=== PATIENT | male | born 1970 | race Caucasian/White ===

== ENCOUNTER 2018-04-06 14:48 | Inpatient (IN) ==
[2018-04-06 16:01] LABS: Basophils % 0.1 %; Eosinophils # 0.2 K/mcL (0.0-0.6); Eosinophils % 1.8 %; Hematocrit 21.9 % (37.5-50.1); Hemoglobin 6.9 g/dL (12.9-16.9); Immature Granulocytes % 0.6 % (0-4); Lymphocytes # 0.5 K/mcL (0.6-4.6); Lymphocytes % 3.8 %; Mean Corpuscular HGB Conc 31.5 g/dL (31.6-35.5); Mean Corpuscular Hemoglobin 29.4 pg (28.0-33.3); Mean Corpuscular Volume 93.2 fL (83.0-100.0); Mean Platelet Volume 10.1 fL (9.4-12.4); Monocytes # 0.7 K/mcL (0.0-1.3); Monocytes % 5.3 %; Neutrophils # 11.6 K/mcL (1.6-8.9); Platelet Count 354 K/mcL (140-400); Red Blood Count 2.35 M/mcL (4.19-5.50); Red Cell Distribution Width 14.6 % (11.5-14.5); Segmented Neutrophils % 88.4 %
[2018-04-06] MEDS ORDERED: Levofloxacin 750 MG/150 ML 750 MG/150 ML BAG IVPB ONE (16:18)
[2018-04-06] MEDS ORDERED: Piperacillin/Tazobactam 3.375 GM in Water for inj. (sterile) 20 ML 20 ML IVP ONE (16:19)
[2018-04-06 16:21] LABS: Calcium 8.9 mg/dL (8.6-10.3)
--- NOTE | 2018-04-06 17:04 | Emergency Department Note ---
Disposition Clinical Impression: Pneumonia Qualifiers: Pneumonia type: due to unspecified organism Laterality: unspecified laterality Lung location: unspecified part of lung Qualified Code(s): J18.9 - Pneumonia, unspecified organism Disposition: Admitted As Inpatient Condition: Good Referrals: Felipe Workman MD [Primary Care Provider] - Time of Disposition: 17:04 General Adult HPI - General Chief complaint: ED Shortness of Breath/Dyspnea Stated complaint: Needs admitted Time Seen by Provider: 04/06/18 14:56 - History of Present Illness Pain Scale: 0 - Related Data Home Medications Medication Instructions Recorded Confirmed Allopurinol [Zyloprim 100 MG] 400 mg PO DAILY 10/28/16 04/06/18 Aspirin [Lo-Dose Aspirin EC] 81 mg PO DAILY 10/28/16 04/06/18 Atorvastatin [Lipitor] 40 mg PO HS 10/28/16 04/06/18 Diltiazem HCl [Diltiazem 24Hr Cd] 120 mg PO DAILY 10/28/16 04/06/18 Furosemide [Lasix] 40 mg PO BID 10/28/16 04/06/18 Gemfibrozil [Lopid] 600 mg PO BIDWM 10/28/16 04/06/18 Mycophenolate Sodium [Myfortic] 720 mg PO BID 10/28/16 04/06/18 PredniSONE [Franky] 5 mg PO DAILY 10/28/16 04/06/18 Ranitidine HCl [Acid Agency Director] 150 mg PO DAILY 10/28/16 04/06/18 Tacrolimus [Prograf] 1 mg PO QAM 10/28/16 04/06/18 Calcitriol [Rocaltrol] 0.25 mcg PO DAILY 04/06/18 04/06/18 Carvedilol 12.5 mg PO BID 04/06/18 04/06/18 Ergocalciferol (VITAMIN D2) 50,000 unit PO 2XW 04/06/18 04/06/18 [Vitamin D2] Sodium Bicarbonate 1,300 mg PO BID 04/06/18 04/06/18 Tacrolimus [Prograf] 0.5 mg PO HS 04/06/18 04/06/18 Allergies Allergy/AdvReac Type Severity Reaction Status Date / Time azithromycin [From Zithromax] AdvReac kidney Verified 04/06/18 15:02 transplant cephalexin [From Keflex] AdvReac transplant Verified 04/06/18 15:02 Penicillins AdvReac kidney Verified 04/06/18 15:02 transplant Past Medical History - Past Medical History Medical history: Reports: atrial fibrillation Surgical history: Reports: other Psychiatric history: Reports: anxiety - Social History Smoking Status: Never smoker Smokeless Tobacco Status: No Alcohol use: Reports: none Drug use: Reports: none Physical Exam - General General appearance: alert, in no apparent distress Course Vital Signs Temperature 99.1 F 04/06/18 15:01 Pulse Rate 74 04/06/18 15:01 Respiratory Rate 20 04/06/18 15:01 Blood Pressure 125/76 04/06/18 15:01 O2 Sat by Pulse Oximetry 95 04/06/18 15:01 Temperature 99.1 F 04/06/18 15:24 Pulse Rate 73 04/06/18 15:24 Respiratory Rate 22 04/06/18 15:24 Blood Pressure 142/72 04/06/18 15:24 O2 Sat by Pulse Oximetry 100 04/06/18 15:24 Oxygen Delivery Oxygen Delivery Room Air Medical Decision Making - Lab Data Result diagrams: 04/06/18 15:08 04/06/18 15:18 Lab Results 04/06/18 04/06/18 04/06/18 Range/Units 15:08 15:18 15:18 WBC 13.1 H (4.3-11.1) K/mcL RBC 2.35 L (4.19-5.50) M/mcL Hgb 6.9 L (12.9-16.9) g/dL Hct 21.9 L (37.5-50.1) % MCV 93.2 (83.0-100.0) fL MCH 29.4 (28.0-33.3) pg MCHC 31.5 L (31.6-35.5) g/dL RDW 14.6 H (11.5-14.5) % Plt Count 354 (140-400) K/mcL MPV 10.1 (9.4-12.4) fL Immature Gran % 0.6 (0-4) % Seg Neutrophils % 88.4 % Lymphocytes % 3.8 % Monocytes % 5.3 % Eosinophils % 1.8 % Basophils % 0.1 % Neutrophils # 11.6 H (1.6-8.9) K/mcL Lymphocytes # 0.5 L (0.6-4.6) K/mcL Monocytes # 0.7 (0.0-1.3) K/mcL Eosinophils # 0.2 (0.0-0.6) K/mcL Basophils # 0.0 (0.0-0.2) K/mcL Sodium 140 (136-145) mEq/L Potassium 5.0 (3.5-5.1) mEq/L Chloride 108 H (98-107) mEq/L Carbon Dioxide 19 L (23-29) mEq/L BUN 53 H (6-20) mg/dL Creatinine 4.61 H (0.70-1.30) mg/dL Est GFR ( Amer) 17 L (> 60) Est GFR (Non-Af Amer) 14 L (> 60) BUN/Creatinine Ratio 11 (6-26) Glucose 131 H (70-105) mg/dL Calculated Osmolality 306 H (280-300) Lactic Acid 0.8 (0.5-2.2) mmol/L Calcium 8.9 (8.6-10.3) mg/dL Troponin I (< 0.04) ng/mL B-Natriuretic Peptide (Less than 100) pg/mL 04/06/18 04/06/18 Range/Units 15:18 15:21 WBC (4.3-11.1) K/mcL RBC (4.19-5.50) M/mcL Hgb (12.9-16.9) g/dL Hct (37.5-50.1) % MCV (83.0-100.0) fL MCH (28.0-33.3) pg MCHC (31.6-35.5) g/dL RDW (11.5-14.5) % Plt Count (140-400) K/mcL MPV (9.4-12.4) fL Immature Gran % (0-4) % Seg Neutrophils % % Lymphocytes % % Monocytes % % Eosinophils % % Basophils % % Neutrophils # (1.6-8.9) K/mcL Lymphocytes # (0.6-4.6) K/mcL Monocytes # (0.0-1.3) K/mcL Eosinophils # (0.0-0.6) K/mcL Basophils # (0.0-0.2) K/mcL Sodium (136-145) mEq/L Potassium (3.5-5.1) mEq/L Chloride (98-107) mEq/L Carbon Dioxide (23-29) mEq/L BUN (6-20) mg/dL Creatinine (0.70-1.30) mg/dL Est GFR ( Amer) (> 60) Est GFR (Non-Af Amer) (> 60) BUN/Creatinine Ratio (6-26) Glucose (70-105) mg/dL Calculated Osmolality (280-300) Lactic Acid (0.5-2.2) mmol/L Calcium (8.6-10.3) mg/dL Troponin I 0.05 H* (< 0.04) ng/mL B-Natriuretic Peptide 644 H (Less than 100) pg/mL Attestation Statement - Attestation Attestation: I examined this patient and my medical decision-making was reviewed with the Resident Physician. I agree with the documented findings, disposition and treatment plan as described except to the extent set forth below. 47 year old male prsentse to the ED with compmlaints of worsening pnuemonia and has failed ouatpeitn therapy. Mehdi states that he also has a kidney transplant that was done at [facility] 22 years ago. Mehdi has been offered transfer to [facility] for titration of antibotic for his kidney tranplant since his kidney fucntion is worsening. Patient follows with dr. Roberts and their group is willing ot conuslt and follow mehdi and mehdi has declined transfer to [facility] and would like to stay here for therpay first and if he worsens than would consider being transferred to [facility] then
[2018-04-06] MEDS ORDERED: 0.9 % Sodium Chloride 500 ML IVC ONE (17:05)
--- NOTE | 2018-04-06 17:13 | Emergency Department Note ---
Disposition Clinical Impression: Kidney transplant recipient Pneumonia Qualifiers: Pneumonia type: due to unspecified organism Laterality: unspecified laterality Lung location: unspecified part of lung Qualified Code(s): J18.9 - Pneumonia, unspecified organism Anemia Qualifiers: Anemia type: unspecified type Qualified Code(s): D64.9 - Anemia, unspecified Disposition: Admitted As Inpatient Condition: Good Time of Disposition: 17:22 General Adult HPI - General Chief complaint: ED Shortness of Breath/Dyspnea Stated complaint: Needs admitted Time Seen by Provider: 04/06/18 14:56 Source: patient Mode of arrival: ambulatory Limitations: no limitations Nursing Notes Reviewed: Yes Vital Signs Reviewed: Yes - History of Present Illness HPI Narrative: Patient is a 47-year-old male with past medical history of kidney transplant the age of 23 presents to the emergency department for evaluation of worsening pneumonia. Patient was diagnosed with bronchitis on March 27 in which she was started on Bactrim antibiotics. He is seen by his PCP 2 days ago in the office and had a chest x-ray done which showed a right-sided multifocal pneumonia and the patient was started on oral Levaquin which she has had 2 days of. He is told to come into the office today due to worsening symptoms patient states he continues to have shortness of breath as well as a productive cough and feeling generally aching. States that he was originally seen at [facility] for his kidney transplant however his care has been transferred to Dr. Roberts. Pain Scale: 0 - Related Data Home Medications Medication Instructions Recorded Confirmed Allopurinol [Zyloprim 100 MG] 400 mg PO DAILY 10/28/16 04/06/18 Aspirin [Lo-Dose Aspirin EC] 81 mg PO DAILY 10/28/16 04/06/18 Atorvastatin [Lipitor] 40 mg PO HS 10/28/16 04/06/18 Diltiazem HCl [Diltiazem 24Hr Cd] 120 mg PO DAILY 10/28/16 04/06/18 Furosemide [Lasix] 40 mg PO BID 10/28/16 04/06/18 Gemfibrozil [Lopid] 600 mg PO BIDWM 10/28/16 04/06/18 Mycophenolate Sodium [Myfortic] 720 mg PO BID 10/28/16 04/06/18 PredniSONE [Franky] 5 mg PO DAILY 10/28/16 04/06/18 Ranitidine HCl [Acid Nitric Acid Plant Operator] 150 mg PO DAILY 10/28/16 04/06/18 Tacrolimus [Prograf] 1 mg PO QAM 10/28/16 04/06/18 Calcitriol [Rocaltrol] 0.25 mcg PO DAILY 04/06/18 04/06/18 Carvedilol 12.5 mg PO BID 04/06/18 04/06/18 Ergocalciferol (VITAMIN D2) 50,000 unit PO 2XW 04/06/18 04/06/18 [Vitamin D2] Sodium Bicarbonate 1,300 mg PO BID 04/06/18 04/06/18 Tacrolimus [Prograf] 0.5 mg PO HS 04/06/18 04/06/18 Allergies Allergy/AdvReac Type Severity Reaction Status Date / Time azithromycin [From Zithromax] AdvReac kidney Verified 04/06/18 15:02 transplant cephalexin [From Keflex] AdvReac transplant Verified 04/06/18 15:02 Penicillins AdvReac kidney Verified 04/06/18 15:02 transplant All systems ED: reviewed and negative except as stated. Review of Systems: As Per HPI Constitutional: Reports: fever, chills ENT ED: Reports: congestion Cardiovascular: Reports: dyspnea on exertion. Denies: chest pain, palpitations, edema, syncope Respiratory: Reports: cough, dyspnea, sputum production. Denies: wheezes Gastrointestinal: Denies: abdominal pain, nausea, vomiting Musculoskeletal: Denies: back pain, neck pain Integumentary: Denies: rash Past Medical History - Past Medical History Attestation: Yes The following information was validated with the patient. Medical history: Reports: atrial fibrillation Surgical history: Reports: other Psychiatric history: Reports: anxiety - Social History Smoking Status: Never smoker Smokeless Tobacco Status: No Alcohol use: Reports: none Drug use: Reports: none Physical Exam CONSTITUTIONAL: A&O X 3, in no apparent distress. Vitals within normal limits. HEAD: Normocephalic; atraumatic EYES: PERRL, no scleral icterus NOSE: The nose is normal in appearance without rhinorrhea NECK: No JVD or distended neck veins RESP: Normal chest excursion with respiration; breath sounds reveal ronchi on the right and left side bilaterally. CARD: Regular rhythm, without murmurs, rub or gallop ABD: Non-distended; non-tender, soft, without rigidity, rebound or guarding,no pulsatile mass CHEST: No pain with palpation SKIN: Normal for age and race; warm and dry without diaphoresis ; no apparent lesions EXTREMITIES: Pulses are 2 plus and equal times 4 extremities, no peripheral edema or calf muscle pain - General General appearance: alert, in no apparent distress Course Course Narrative: According to recent labs patient does have a chest x-ray that showed a multifocal right-sided pneumonia that was performed 2 days ago. Patient underwent further evaluation for progression of his pneumonia. Is found to have a leukocytosis of 13.1. He is also found to have worsening kidney function with creatinine of 4.61 and a GFR 14 which are both worsened from his baseline. Patient also had an elevation of his troponin of 0.05 which I suspect is demand ischemia. I discussed the patient's findings with the qlikview developer on-call, Dr. Forrest, I discussed his worsening kidney function as well as his required treatment for pneumonia. He recommended linezolid, Zosyn and Levaquin. He states it would be up to the patient at the patient wanted be transferred to [facility] for further care he did agree or if the patient wanted to remain at [facility] he is also okay with seeing the patient in the hospital. They used share decision- making with the patient and the patient states that he did prefer to stay at this hospital. I also ran the antibiotics by pharmacy to make sure these are appropriate for coverage for his pneumonia as well as for his current renal function and they agreed with the antibiotic choices. The patient was also found to have an anemia of 6.9 and a positive fecal called. He states this is happened in the past and had upper and lower scopes which showed no acute bleed was suspected that is most likely from his kidney disease which I would agree with at this point. He will be ordered 1 blood transfusion is also given IV fluids. He will be admitted to the hospital for further management. Vital Signs Temperature 99.1 F 04/06/18 15:01 Pulse Rate 74 04/06/18 15:01 Respiratory Rate 20 04/06/18 15:01 Blood Pressure 125/76 04/06/18 15:01 O2 Sat by Pulse Oximetry 95 04/06/18 15:01 Temperature 99.1 F 04/06/18 15:24 Pulse Rate 68 04/06/18 18:18 Respiratory Rate 18 04/06/18 18:18 Blood Pressure 162/84 04/06/18 18:18 O2 Sat by Pulse Oximetry 98 04/06/18 18:18 Oxygen Delivery Oxygen Delivery Room Air Medical Decision Making - Medical Records Medical records reviewed: Yes I reviewed the patient's medical records. - Lab Data Lab results reviewed: Yes I reviewed the patient's lab results. Result diagrams: 04/06/18 15:08 04/06/18 15:18 Lab Results 04/06/18 04/06/18 04/06/18 Range/Units 15:08 15:18 15:18 WBC 13.1 H (4.3-11.1) K/mcL RBC 2.35 L (4.19-5.50) M/mcL Hgb 6.9 L (12.9-16.9) g/dL Hct 21.9 L (37.5-50.1) % MCV 93.2 (83.0-100.0) fL MCH 29.4 (28.0-33.3) pg MCHC 31.5 L (31.6-35.5) g/dL RDW 14.6 H (11.5-14.5) % Plt Count 354 (140-400) K/mcL MPV 10.1 (9.4-12.4) fL Immature Gran % 0.6 (0-4) % Seg Neutrophils % 88.4 % Lymphocytes % 3.8 % Monocytes % 5.3 % Eosinophils % 1.8 % Basophils % 0.1 % Neutrophils # 11.6 H (1.6-8.9) K/mcL Lymphocytes # 0.5 L (0.6-4.6) K/mcL Monocytes # 0.7 (0.0-1.3) K/mcL Eosinophils # 0.2 (0.0-0.6) K/mcL Basophils # 0.0 (0.0-0.2) K/mcL Sodium 140 (136-145) mEq/L Potassium 5.0 (3.5-5.1) mEq/L Chloride 108 H (98-107) mEq/L Carbon Dioxide 19 L (23-29) mEq/L BUN 53 H (6-20) mg/dL Creatinine 4.61 H (0.70-1.30) mg/dL Est GFR ( Amer) 17 L (> 60) Est GFR (Non-Af Amer) 14 L (> 60) BUN/Creatinine Ratio 11 (6-26) Glucose 131 H (70-105) mg/dL Calculated Osmolality 306 H (280-300) Lactic Acid 0.8 (0.5-2.2) mmol/L Calcium 8.9 (8.6-10.3) mg/dL Troponin I (< 0.04) ng/mL B-Natriuretic Peptide (Less than 100) pg/mL Stool Occult Bld Scrn (Negative) Blood Type Antibody Screen Crossmatch 04/06/18 04/06/18 04/06/18 Range/Units 15:18 15:21 16:26 WBC (4.3-11.1) K/mcL RBC (4.19-5.50) M/mcL Hgb (12.9-16.9) g/dL Hct (37.5-50.1) % MCV (83.0-100.0) fL MCH (28.0-33.3) pg MCHC (31.6-35.5) g/dL RDW (11.5-14.5) % Plt Count (140-400) K/mcL MPV (9.4-12.4) fL Immature Gran % (0-4) % Seg Neutrophils % % Lymphocytes % % Monocytes % % Eosinophils % % Basophils % % Neutrophils # (1.6-8.9) K/mcL Lymphocytes # (0.6-4.6) K/mcL Monocytes # (0.0-1.3) K/mcL Eosinophils # (0.0-0.6) K/mcL Basophils # (0.0-0.2) K/mcL Sodium (136-145) mEq/L Potassium (3.5-5.1) mEq/L Chloride (98-107) mEq/L Carbon Dioxide (23-29) mEq/L BUN (6-20) mg/dL Creatinine (0.70-1.30) mg/dL Est GFR ( Amer) (> 60) Est GFR (Non-Af Amer) (> 60) BUN/Creatinine Ratio (6-26) Glucose (70-105) mg/dL Calculated Osmolality (280-300) Lactic Acid (0.5-2.2) mmol/L Calcium (8.6-10.3) mg/dL Troponin I 0.05 H* (< 0.04) ng/mL B-Natriuretic Peptide 644 H (Less than 100) pg/mL Stool Occult Bld Scrn (Negative) Blood Type A POSITIVE Antibody Screen NEGATIVE Crossmatch See Detail 04/06/18 04/06/18 Range/Units 17:33 17:35 WBC (4.3-11.1) K/mcL RBC (4.19-5.50) M/mcL Hgb (12.9-16.9) g/dL Hct (37.5-50.1) % MCV (83.0-100.0) fL MCH (28.0-33.3) pg MCHC (31.6-35.5) g/dL RDW (11.5-14.5) % Plt Count (140-400) K/mcL MPV (9.4-12.4) fL Immature Gran % (0-4) % Seg Neutrophils % % Lymphocytes % % Monocytes % % Eosinophils % % Basophils % % Neutrophils # (1.6-8.9) K/mcL Lymphocytes # (0.6-4.6) K/mcL Monocytes # (0.0-1.3) K/mcL Eosinophils # (0.0-0.6) K/mcL Basophils # (0.0-0.2) K/mcL Sodium (136-145) mEq/L Potassium (3.5-5.1) mEq/L Chloride (98-107) mEq/L Carbon Dioxide (23-29) mEq/L BUN (6-20) mg/dL Creatinine (0.70-1.30) mg/dL Est GFR ( Amer) (> 60) Est GFR (Non-Af Amer) (> 60) BUN/Creatinine Ratio (6-26) Glucose (70-105) mg/dL Calculated Osmolality (280-300) Lactic Acid 0.6 (0.5-2.2) mmol/L Calcium (8.6-10.3) mg/dL Troponin I (< 0.04) ng/mL B-Natriuretic Peptide (Less than 100) pg/mL Stool Occult Bld Scrn Positive A (Negative) Blood Type Antibody Screen Crossmatch - Radiology Data Radiology results reviewed: Yes I reviewed the patient's radiology results. Chest X-Ray 04/06/18 15:08 IMPRESSION: Worsening bilateral patchy pulmonary infiltrates consistent with a multifocal pneumonia. D/ / Martin Phoenix MD / Martin Phoenix MD Interpreting Provider: Martin Phoenix MD - EKG Data EKG #1 EKG attestation: Yes I reviewed and interpreted this EKG. EKG results narrative: EKG done at 15:11 shows sinus rhythm at a rate of 73 bpm. Normal axis. Intervals within normal limits. No signs of ST elevation, ST depression or Q waves present.
[2018-04-06] MEDS ORDERED: Naloxone 0.4 MG/ML INJ IVP PRN (20:42)
[2018-04-06] MEDS ORDERED: 0.9 % Sodium Chloride 250 ML ONE (22:09)
[2018-04-07] MEDS ORDERED: Levofloxacin 250 MG/50 ML 250 MG/50 ML BAG IVPB SCH (01:00)
--- NOTE | 2018-04-07 01:05 | Internal Med History&Physical ---
Date of Encounter: 04/06/18 Time of Encounter: 19:00 Internal Medicine - H&P: HPI Chief complaint: DIFFICULY BREATHING Admitted From: Home Plans for Post Hospital Care: Home History of present illness: The patient is a 47-year-old male. He underwent a kidney transplant at his age of 23. It was about 10 days ago, when he developed coughing. Subsequently, he started treatment for acute bronchitis. It was treated with oral Bactrim. 2 days ago, he was diagnosed with pneumonia. Started on oral Levaquin. The patient continues to have coughing. He feels progressively weaker/tired. His blood test done in our emergency room showed worsening of his chronic anemia. And acute on chronic renal failure. She is a patient of Dr. Roberts, nephrology. PAST MEDICAL HX: He has been treated for atrial fibrillation, hypertension/hyperlipidemia and GERD. He had a kidney transplant at the age of 23; takes anti-rejection medications. PAST FAMILY HX: Positive for HTN and HLD PAST SOCIAL HX: See below.. REVIEW OF SYSTEMS: All 14 organ systems were reviewed by me with the patient. Positive and pertinent negative findings are listed above. The rest of organ systems is negative. PHYSICAL EXAM: Skin: Free of rash and discoloration. Eyes: Sclera is white. There is no discharge from eyes. ENMT: Oral/pharyngeal mucosa is normal in appearance. There is no discharge from nose or ears. Respiratory: Normal breath sounds with no crackles and wheezes bilaterally. CV: Heart is irregularly irregular with no audible murmur. GI: Abdomen is flat and soft with no palpable mass or visceromegaly. : There is no tenderness in patient's flanks bilaterally. Neuro exam: He has good strength in upper and lower extremities. He has normal eye movements. Psychiatric: He has normal affect. His thought process is appropriate to the situation. ADDITIONAL DATA: Chest x-ray shows worsening of bilateral patchy pulmonary infiltrate. Consistent with a multifocal pneumonia. Hemoglobin 6.9; was 9.8 on 03/18/18. WBC is 13.1 thousand. He has normal platelet count. His bicarb is 19; the rest of electrolytes is normal. Right knee is have her 0.61; 2.98 on 03/18/18. Troponin 0 0.05. BNP is 644. A/P: Pneumonia. The patient is immunocompromised as he takes antirejection medications. He started on IV Zyvox, IV Zosyn and IV Levaquin. I will give him when necessary nebulizer treatments with DuoNeb. Worsening of chronic anemia. He will be transfused with packed blood cells. Acute on chronic renal failure. Nephrology is consulted. He will get IV fluids. He is status post renal transplant. His other problems are stable/under control. Past Med Surg Social Fam HX - Past Medical History Medical history: atrial fibrillation Additional medical history: right kidney transplant, Psychiatric history: anxiety - Past Surgical History Surgical History: other Additional surgical history: kidney transplant at 23 y.o. - Social History Smoking Status: Never smoker Smokeless Tobacco Status: No Alcohol use: none Drug use: none Internal Medicine - H&P: Meds Allopurinol [Zyloprim 100 MG] 400 mg PO DAILY 10/28/16 [History] Aspirin [Lo-Dose Aspirin EC] 81 mg PO DAILY 10/28/16 [History] Atorvastatin [Lipitor] 40 mg PO HS 10/28/16 [History] Diltiazem HCl [Diltiazem 24Hr Cd] 120 mg PO DAILY 10/28/16 [History] Furosemide [Lasix] 40 mg PO BID 10/28/16 [History] Gemfibrozil [Lopid] 600 mg PO BIDWM 10/28/16 [History] Mycophenolate Sodium [Myfortic] 720 mg PO BID 10/28/16 [History] PredniSONE [Franky] 5 mg PO DAILY 10/28/16 [History] Ranitidine HCl [Acid First Aid Instructor] 150 mg PO DAILY 10/28/16 [History] Tacrolimus [Prograf] 1 mg PO QAM 10/28/16 [History] Calcitriol [Rocaltrol] 0.25 mcg PO DAILY 04/06/18 [History] Carvedilol 12.5 mg PO BID 04/06/18 [History] Ergocalciferol (VITAMIN D2) [Vitamin D2] 50,000 unit PO 2XW 04/06/18 [History] Sodium Bicarbonate 1,300 mg PO BID 04/06/18 [History] Tacrolimus [Prograf] 0.5 mg PO HS 04/06/18 [History] Allergy/AdvReac Type Severity Reaction Status Date / Time azithromycin [From Zithromax] AdvReac kidney Verified 04/06/18 15:02 transplant cephalexin [From Keflex] AdvReac transplant Verified 04/06/18 15:02 Penicillins AdvReac kidney Verified 04/06/18 15:02 transplant - Constitutional Vitals: Temp Pulse Resp BP Pulse Ox 98.7 F 70 18 147/77 95 04/07/18 00:30 04/07/18 00:30 04/07/18 00:30 04/07/18 00:30 04/07/18 00:30 General appearance: Present: A&O X 3, no acute distress, answers questions appropriately Exam: xx Internal Med - H&P Results - Labs CBC & Chem 7: 04/06/18 15:08 04/06/18 15:18 Labs: Short CBC 04/06/18 Range/Units 15:08 WBC 13.1 H (4.3-11.1) K/mcL Hgb 6.9 L (12.9-16.9) g/dL Hct 21.9 L (37.5-50.1) % Plt Count 354 (140-400) K/mcL Neutrophils # 11.6 H (1.6-8.9) K/mcL BMP 04/06/18 15:18 Sodium 140 Potassium 5.0 Chloride 108 H Carbon Dioxide 19 L BUN 53 H Creatinine 4.61 H Glucose 131 H Calcium 8.9 Cardiac Enzymes 04/06/18 Range/Units 15:18 Troponin I 0.05 H* (< 0.04) ng/mL - Impressions ITS Impressions Chest X-Ray 04/06/18 15:08 IMPRESSION: Worsening bilateral patchy pulmonary infiltrates consistent with a multifocal pneumonia. D/ / Martin Phoenix MD / Martin Phoenix MD Interpreting Provider: Martin Phoenix MD - Assessment and plan (1) Pneumonia Current Visit: Yes Status: Acute Qualifiers: Pneumonia type: due to unspecified organism Laterality: unspecified laterality Lung location: unspecified part of lung Qualified Code(s): J18.9 - Pneumonia, unspecified organism (2) Anemia Current Visit: Yes Status: Acute Qualifiers: Anemia type: due to chronic kidney disease Chronic kidney disease stage: stage 3 (moderate) Qualified Code(s): N18.3 - Chronic kidney disease, stage 3 (moderate); D63.1 - Anemia in chronic kidney disease (3) AJIT (acute kidney injury) Current Visit: Yes Status: Acute (4) Kidney transplant recipient Current Visit: Yes Status: Chronic - Time Spent With Patient Total time spent is greater than 50% in coordination of care (as documented) at patient's floor/unit and/or counseling patient: - VTE Deep Vein Thrombosis/Pulmonary Embolism Present on Admission: No
[2018-04-07] MEDS ORDERED: Ipratropium/Albuterol Neb 3 ML IH PRN (01:06)
[2018-04-07] MEDS ORDERED: Piperacillin/Tazobactam 3.375 GM in 0.9 % Sodium Chloride Mini Bag 100 ML IVPB SCH (06:00)
[2018-04-07 07:10] LABS: Basophils % 0.1 %; Eosinophils # 0.2 K/mcL (0.0-0.6); Eosinophils % 2.9 %; Hematocrit 20.2 % (37.5-50.1); Hemoglobin 6.2 g/dL (12.9-16.9); Immature Granulocytes % 0.8 % (0-4); Lymphocytes # 0.7 K/mcL (0.6-4.6); Lymphocytes % 8.6 %; Mean Corpuscular HGB Conc 30.7 g/dL (31.6-35.5); Mean Corpuscular Hemoglobin 29.2 pg (28.0-33.3); Mean Corpuscular Volume 95.3 fL (83.0-100.0); Monocytes # 0.6 K/mcL (0.0-1.3); Monocytes % 7.6 %; Neutrophils # 6.3 K/mcL (1.6-8.9); Platelet Count 256 K/mcL (140-400); Red Blood Count 2.12 M/mcL (4.19-5.50); Red Cell Distribution Width 14.6 % (11.5-14.5)
[2018-04-07 07:31] LABS: Calcium 8.6 mg/dL (8.6-10.3); Magnesium 1.3 mg/dL (1.6-2.6); Potassium 4.9 mEq/L (3.5-5.1)
--- NOTE | 2018-04-07 07:40 | Internal Med Progress Note ---
Hospitalist Progress Note - Encounter Date of Encounter: 04/07/18 Time of Encounter: 07:30 - Subjective Interval History: 47-year-old male. He underwent a kidney transplant at his age of 23.It was about 10 days ago, when he developed coughing. Subsequently, he started treatment for acute bronchitis. It was treated with oral Bactrim. 2 days ago, he was diagnosed with pneumonia. Started on oral Levaquin. The patient continues to have coughing. He feels progressively weaker/tired. His blood test done in our emergency room showed worsening of his chronic anemia. And acute on chronic renal failure - Exam Vitals: Temp Pulse Resp BP Pulse Ox 98.3 F 76 18 167/75 96 04/07/18 03:46 04/07/18 03:46 04/07/18 03:46 04/07/18 03:46 04/07/18 03:46 Exam: Gen - Awake, alert, oriented x 3, no acute distress HEENT - NCAT, PERRLA, EOMI, hearing grossly intact, oropharynx benign CV - RRR, normal S1 and S2, no M/R/G, no BLE edema Resp - Normal WOB, CTAB, no W/R/R GI - Soft, NT/ND, no masses, normal bowel sounds, Skin - Warm, dry, no rashes/lesions/ulcers Psych - Normal mood and affect, no depression or anxiety - Assessment and Plan (1) Multifocal pneumonia Current Visit: Yes Status: Acute Assessment and Plan: Pt comes in coughing of a couple of days duration. CXR shows multifocal pneumonia On zyvox , zosyn and levaquin. Follow blood cultures, urine legionella and streptococcal antigen (2) Anemia Current Visit: Yes Status: Acute Assessment and Plan: Anemia likely secondary to CKD and acute blood loss from possible GI bleed. Transfused one unit of hemoglobin overnight but hemglobin dropped from 6.9 to 6.2 this am Transfuse 2 units PRBC. Start protonix 40mg IV BID GI consulted for endoscopy/ colonoscopy (3) DVT of upper extremity (deep vein thrombosis) Current Visit: Yes Status: Acute Assessment and Plan: New DVT noted in rigth upper extremity. Pt has GI bleed and cannot be anticoagulated at this time Will consult oncology for further management (4) Kidney transplant recipient Current Visit: Yes Status: Chronic Assessment and Plan: Continue immunosuppressive regimen. Renal on board. Avoid nephrotoxic drugs (5) AJIT (acute kidney injury) Current Visit: Yes Status: Acute Assessment and Plan: Acute kidney injury on chronic renal disease stage 5 s/p kidney transplant. IV fluids. Avoid nephrotoxins (6) Atrial fibrillation Current Visit: Yes Status: Acute Assessment and Plan: Rate controlled. continue diltiazem. No indication to anticaogulate (7) Diastolic CHF Current Visit: Yes Status: Acute Assessment and Plan: No acute exacerbation. Will continue lasix as tolerated DVT Prophylaxis: heparin sc - Time Spent with Patient Total time spent is greater than 50% in coordination of care (as documented) at patient's floor/unit and/or counseling patient: Internal Medicine: Result - Labs CBC & Chem 7: 04/07/18 06:23 04/07/18 06:23 Labs: Short CBC 04/06/18 04/07/18 Range/Units 15:08 06:23 WBC 13.1 H 7.9 (4.3-11.1) K/mcL Hgb 6.9 L 6.2 L (12.9-16.9) g/dL Hct 21.9 L 20.2 L (37.5-50.1) % Plt Count 354 256 (140-400) K/mcL Neutrophils # 11.6 H 6.3 (1.6-8.9) K/mcL BMP 04/06/18 04/07/18 15:18 06:23 Sodium 140 137 Potassium 5.0 4.9 Chloride 108 H 107 Carbon Dioxide 19 L 18 L BUN 53 H 53 H Creatinine 4.61 H 4.36 H Glucose 131 H 216 H Calcium 8.9 8.6 Cardiac Enzymes 04/06/18 Range/Units 15:18 Troponin I 0.05 H* (< 0.04) ng/mL - Impressions Impressions Chest X-Ray 04/06/18 15:08 IMPRESSION: Worsening bilateral patchy pulmonary infiltrates consistent with a multifocal pneumonia. D/ / Martin Phoenix MD / Martin Phoenix MD Interpreting Provider: Martin Phoenix MD - VTE Deep Vein Thrombosis/Pulmonary Embolism Present on Admission: No Consult Discharge Plan - Plan Referrals: Felipe Workman MD [Primary Care Provider] - (2) Anemia Qualifiers: Anemia type: other cause Other causes of anemia: other cause, not classified (3) DVT of upper extremity (deep vein thrombosis) Qualifiers: Affected thrombotic vein of extremity: brachial Laterality: right Qualified Code(s): I82.621 - Acute embolism and thrombosis of deep veins of right upper extremity (6) Atrial fibrillation Qualifiers: Atrial fibrillation type: chronic Qualified Code(s): I48.2 - Chronic atrial fibrillation (7) Diastolic CHF Qualifiers: Heart failure chronicity: chronic Qualified Code(s): I50.32 - Chronic diastolic (congestive) heart failure
[2018-04-07] MEDS ORDERED: Furosemide 40 MG TABLET PO SCH ×2 (08:00→09:00)
[2018-04-07] MEDS ORDERED: Famotidine 20 MG TABLET PO SCH (09:00)
[2018-04-07] MEDS: Aspirin Enteric Coated 81 MG Tablet PO SCH (09:11)
[2018-04-07] MEDS: Diltiazem CD (24hr) 120 MG CAPSULE PO SCH (09:11)
[2018-04-07] MEDS: predniSONE 5 MG TABLET PO SCH (09:11)
[2018-04-07] MEDS: Tacrolimus [Prograf] 1 MG PO SCH (09:12)
--- NOTE | 2018-04-07 09:13 | Gastroenterology Consult Note ---
<Jessenia Vega - Last Filed: 04/07/18 09:30> Date of Encounter: 04/07/18 Time of Encounter: 08:45 - Assessment and plan (1) Anemia Current Visit: Yes Status: Acute Assessment and plan: Pt presented with increased weakness and fatigue. He has worsening of chronic anemia. Stool was positive for OB. Will plan for EGD and colonoscopy tomorrow to rule out esophagitis, gastritis, duodenitis, PUD, MW tear or AVM. Clear liquid diet today, will order prep for colonoscopy. Monitor Hgb transfuse as needed. Continue PPI. Qualifiers: Anemia type: other cause Other causes of anemia: other cause, not classified Qualified Code(s): D64.89 - Other specified anemias (2) Pneumonia Current Visit: Yes Status: Acute Assessment and plan: Tx per primary, is currently on levaquin, zyvox, and zosyn. Pt states symptoms are improved. Qualifiers: Pneumonia type: due to unspecified organism Laterality: unspecified laterality Lung location: unspecified part of lung Qualified Code(s): J18.9 - Pneumonia, unspecified organism (3) Kidney transplant recipient Current Visit: Yes Status: Chronic Assessment and plan: Pt is on antirejection meds, followed by nephrology. (4) Atrial fibrillation Current Visit: Yes Status: Acute Qualifiers: Atrial fibrillation type: chronic Qualified Code(s): I48.2 - Chronic atrial fibrillation - Time Spent With Patient Total time spent is greater than 50% in coordination of care (as documented) at patient's floor/unit and/or counseling patient: GI History of Present Illness - Data of Consult Patient: new to practice Consult date: 04/07/18 Requesting Physician: Toni Hurd - Consult Narrative Reason for consult: anemia History of present illness: Mr. Roque is a 47 year old male who has a pmhx of atrial fibrillation, hypertension/hyperlipidemia and GERD. He had a kidney transplant at the age of 23; takes anti-rejection medications. He presented with increasing weakness and fatigue. He states symptoms started about 10 days ago, when he developed co ughing. Subsequently, he was diagnosed with acute bronchitis and was treated with oral Bactrim. 2 days ago, he was diagnosed with pneumonia and started on oral Levaquin. The patient continues to have coughing. He feels progressively weaker/tired. CXR shows multifocal pneumonia. Labs in ER showed worsening of his chronic anemia and acute on chronic renal failure. He denies any abdominal pain, GERD, melena or hematochezia. He does complain of 3-4 diarrhea stools a day since being treated with antibiotics for pneumonia. He has some post-tussive nausea and vomiting. Hgb was 9.8 on 03/18/18 dropped to 8.0 on admission he was transfused one unit prbcs and dropped to 6.2 today. Stool was positive for occult blood. He reports an episode of acute anemia last year and had colonoscopy at [facility] which was negative for any bleeding. He denies previous EGD. NSAIDS: asa 81 mg anticoagulants: none Procedures: 10/15 colonoscopy [facility] normal per pt Past Med Surg Social Fam HX - Past Medical History Medical history: atrial fibrillation Additional medical history: right kidney transplant, Psychiatric history: anxiety - Past Surgical History Surgical History: other Additional surgical history: kidney transplant at 23 y.o. - Social History Smoking Status: Never smoker Smokeless Tobacco Status: No Alcohol use: none Drug use: none Review of Systems: GI: as per [place] [facility]: denies fever, has some chills EYES: denies yellow discoloration ENT: denies pain with swallowing or difficulty swallowing CARDIO: denies chest pain, palpitations RESP: Shortness of breath with exertion : denies change in color of urine NEURO: weakness HEME: Denies any bruising MS: chronic back and joint pain. DERM: denies rash or itching PSYCH: Denies history of anxiety or depression - Constitutional Vitals: Temp Pulse Resp BP Pulse Ox 98.8 F 87 18 162/80 96 04/07/18 07:23 04/07/18 07:23 04/07/18 07:23 04/07/18 07:23 04/07/18 07:23 Exam: CONSTITUTIONAL:alert, no acute distress.HEAD:normocephalic.EYES:no jaundice.NECK:no obvious swelling.HEART:irregular rate and rhythm, no murmurs.LUNGS:bilateral fair air entry.ABDOMEN:non distended, soft, non tender, no masses palpable, no organomegaly.RECTAL EXAM:Deferred.EXTREMITIES:no clubbing, cyanosis or edema.SKIN:no stigmata of chronic liver disease, pallor noted.NEUROLOGIC:no obvious focal defect. Results - Labs CBC & Chem 7: 04/07/18 06:23 04/07/18 06:23 Labs: Last Result Calcium 8.6 mg/dL (8.6-10.3) 04/07/18 06:23 Troponin I 0.05 ng/mL (< 0.04) H* 04/06/18 15:18 Entire Visit Hgb 6.2 g/dL (12.9-16.9) L 04/07/18 06:23 Hct 20.2 % (37.5-50.1) L 04/07/18 06:23 - Impressions Impressions Chest X-Ray 04/06/18 15:08 IMPRESSION: Worsening bilateral patchy pulmonary infiltrates consistent with a multifocal pneumonia. D/ / Martin Phoenix MD / Martin Phoenix MD Interpreting Provider: Martin Phoenix MD Consult Discharge Plan - Plan Referrals: Felipe Workman MD [Primary Care Provider] - <DebbieKaren - Last Filed: 04/07/18 13:38> Date of Encounter: 04/07/18 Time of Encounter: 13:00 - Time Spent With Patient Total time spent is greater than 50% in coordination of care (as documented) at patient's floor/unit and/or counseling patient: GI History of Present Illness - Data of Consult Requesting Physician: Toni Hurd - Consult Narrative History of present illness: Mr. Roque is a 47 year old male - Constitutional Vitals: Temp Pulse Resp BP Pulse Ox 99.1 F 65 16 158/77 96 04/07/18 13:27 04/07/18 13:27 04/07/18 13:27 04/07/18 13:27 04/07/18 13:27 Results - Labs CBC & Chem 7: 04/07/18 06:23 04/07/18 06:23 Labs: Last Result Calcium 8.6 mg/dL (8.6-10.3) 04/07/18 06:23 Troponin I 0.05 ng/mL (< 0.04) H* 01/06/19 15:18 Entire Visit Hgb 6.2 g/dL (12.9-16.9) L 04/07/18 06:23 Hct 20.2 % (37.5-50.1) L 04/07/18 06:23 - Impressions Impressions Chest X-Ray 04/06/18 15:08 IMPRESSION: Worsening bilateral patchy pulmonary infiltrates consistent with a multifocal pneumonia. D/ / Martin Phoenix MD / Martin Phoenix MD Interpreting Provider: Martin Phoenix MD - Attending Attestation I have personally performed a face to face evaluation on this patient. I have reviewed and agree with the care plan. History and Exam by me shows: Pt seen denies any active complaints no blood in the stool. Examination abdomen is soft. Assessment : patient with ES renal disease with anemia most probably due to anemia of chronic disease but rule out GI causes for his severe anemia. Recommendation: EGD colonoscopy tomorrow. Agree with blood transfusion.
[2018-04-07] MEDS: Mycophenolate Sodium (DR) 180 MG TABLET.DR PO SCH ×2 (09:14→20:43)
--- NOTE | 2018-04-07 09:51 | Nephrology Consult Note ---
Addendum entered and electronically signed by Paul Forrest MD 04/07/18 20:16: I examined this patient and my medical decision-making was reviewed with the Medical Student. I agree with the documented findings, disposition and treatment plan as described except to the extent set forth below. Patient with a history significant for renal transplant presenting with AJIT on CKD likely from prerenal azotemia along with bactrim use. On exam as documen niurka below. In addition he did not have edema, he was alert and oriented. Labs and vitals as documented. A&P as below. AJIT on CKD - continue MIV and discontinue bactrim. Agree with linezolid as opposed to vancomycin given his AJIT. Avoid nephrotoxins. His renal function is starting to improve. Renal transplant - continue home medications. Pneumonia- per the primary team. Original Note: Date of Encounter: 04/07/18 Time of Encounter: 09:50 Assessment and Plan (1) AJIT (acute kidney injury) Current Visit: Yes Status: Acute Acute on Chronic renal disease (baseline CKD stage 3 s/p R renal transplant). BUN 53 on 04/07/18 (was 39 on 03/18/18), Creatinine 4.36 on 04/07/18 (2.98 on 03/18/18), GFR 15 on 04/07/18 (was 23 on 03/18/18), bicarb 18 (22 on 03/18/18) Urinalysis for possible prerenal cause, renal ultrasound to rule out postrenal causes. 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 Continue immunosuppressives, monitor renal function. (3) Anemia Current Visit: Yes Status: Acute Anemia likely secondary to CKD and possible GI bleed related acute blood loss. Hgb 6.2 today down from 6.9 on 04/07/18 with one unit of PRBC transfused overnight. Hospitalist planning to transfuse 2 units PRBC today and GI consulted for possible bleed. Qualifiers: Anemia type: other cause Other causes of anemia: other cause, not classified Qualified Code(s): D64.89 - Other specified anemias (4) Metabolic acidosis Current Visit: Yes Status: Acute Bicarb of 18 on 04/07/18. Treat with sodium bicarbonate 1300 BID. Monitor bicarb and renal function. (5) Pneumonia Current Visit: Yes Status: Acute Hospitalist is managing, currently Landon Carter Zosyn. Qualifiers: Pneumonia type: due to unspecified organism Laterality: unspecified laterality Lung location: unspecified part of lung Qualified Code(s): J18.9 - Pneumonia, unspecified organism (6) Atrial fibrillation Current Visit: Yes Status: Acute Qualifiers: Atrial fibrillation type: chronic Qualified Code(s): I48.2 - Chronic atrial fibrillation (7) Elevated troponin Current Visit: Yes Status: Acute (8) Diastolic CHF Current Visit: Yes Status: Acute Qualifiers: Heart failure chronicity: chronic Qualified Code(s): I50.32 - Chronic diastolic (congestive) heart failure (9) Hypertension Current Visit: Yes Status: Acute Patient's blood pressure was 125/76 on admission but 153/78 at 1045 04/07/18. Continue lasix for diuresis. Qualifiers: Hypertension type: unspecified Qualified Code(s): I10 - Essential (primary) hypertension (10) Sepsis Current Visit: Yes Status: Resolved Patient met SIRS criteria for sepsis (RR 22, WBC 13.1) on 04/06/18 upon admission. Currently resolved with RR 16 at 1327 04/07/18 and WBC 7.9 04/07/18 Qualifiers: Sepsis type: sepsis due to unspecified organism Qualified Code(s): A41.9 - Sepsis, unspecified organism History of Present Illness - Reason for Consult Consult date: 04/07/18 Acute Kidney Injury, Chronic Kidney Disease Requesting physician: Santiago Rodríguez - Chief Complaint Difficulty Breathing - History of Present Illness Mr. Lozano is a 47 year old male who is on hospital day 1 for "difficulty breathing" due to pneumonia with PMH of AFib, HTN, HLD and CKD s/p R kidney transplant 22 years previously. His symptoms began on 03/22/18 with a cough that was diagnosed as "acute bronchitis" by PCP due to lack of consolidation and clear breath sounds. On 04/04/18, patient was feverish and saw PCP again, who said if fever does not keagan over weekend to go to ED. Patient's fever was still present on Saturday which resulting in his arrival to ED and subsequent admission. Patient has noted breathing has gotten better since admission and cough is no l onger productive. Past Med Surg Social Fam HX - Past Medical History Medical history: atrial fibrillation Additional medical history: right kidney transplant, Psychiatric history: anxiety - Past Surgical History Surgical History: other Additional surgical history: kidney transplant at 23 y.o. - Social History Smoking Status: Never smoker Smokeless Tobacco Status: No Alcohol use: none Drug use: none Medications and Allergies Allopurinol [Zyloprim 100 MG] 400 mg PO DAILY 10/28/16 [History] Aspirin [Lo-Dose Aspirin EC] 81 mg PO DAILY 10/28/16 [History] Atorvastatin [Lipitor] 40 mg PO HS 10/28/16 [History] Diltiazem HCl [Diltiazem 24Hr Cd] 120 mg PO DAILY 10/28/16 [History] Furosemide [Lasix] 40 mg PO BID 10/28/16 [History] Gemfibrozil [Lopid] 600 mg PO BIDWM 10/28/16 [History] Mycophenolate Sodium [Myfortic] 720 mg PO BID 10/28/16 [History] PredniSONE [Franky] 5 mg PO DAILY 10/28/16 [History] Ranitidine HCl [Acid Diesel Bus Mechanic] 150 mg PO DAILY 10/28/16 [History] Tacrolimus [Prograf] 1 mg PO QAM 10/28/16 [History] Calcitriol [Rocaltrol] 0.25 mcg PO DAILY 04/06/18 [History] Carvedilol 12.5 mg PO BID 04/06/18 [History] Ergocalciferol (VITAMIN D2) [Vitamin D2] 50,000 unit PO 2XW 04/06/18 [History] Sodium Bicarbonate 1,300 mg PO BID 04/06/18 [History] Tacrolimus [Prograf] 0.5 mg PO HS 04/06/18 [History] Allergy/AdvReac Type Severity Reaction Status Date / Time azithromycin [From Zithromax] AdvReac kidney Verified 04/06/18 15:02 transplant cephalexin [From Keflex] AdvReac transplant Verified 04/06/18 15:02 Penicillins AdvReac kidney Verified 04/06/18 15:02 transplant Review of Systems Constitutional: fatigue, no chills, no fever(s) Cardiovascular: no chest pain, no palpitations Respiratory: cough, no dyspnea Gastrointestinal: no abdominal pain, no nausea, no vomiting Genitourinary Male: urinary frequency, no dysuria, no urinary urgency Exam - Vital Signs Vital signs: Initial Vital Signs Temp Pulse Resp BP Pulse Ox 99.1 F 74 20 125/76 95 04/06/18 15:01 04/06/18 15:01 04/06/18 15:01 04/06/18 15:01 04/06/18 15:01 Vital Signs - Last 8 Hours Temp Pulse Resp BP Pulse Ox 04/07/18 07:23 98.8 F 87 18 162/80 96 04/07/18 03:46 98.3 F 76 18 167/75 96 Intake and Output 04/06/18 04/07/18 04/07/18 23:59 07:59 15:59 Intake Total 670 / 670 400 / 400 Output Total 200 / 200 475 / 475 Balance 470 / 470 -75 / -75 Intake: IV Fluids 670 / 670 50 / 50 0.9 % Sodium Chloride 500 ML @ 500 / 500 999 mls/hr IVC .Q31M ONE Rx#: [id number] Zosyn 3.375 GM In Water for inj 20 / 20 . (sterile) 20 ML @ 400 mls/hr IVP ONCE ONE Rx#:[id number] Levaquin Premix 250 MG/50 ML 50 / 50 250 mg In 50 ml @ 50 mls/hr IVPB Q48H [facility] Rx#:[id number] Levaquin Premix 750mg/150 mL 150 / 150 750 mg In 150 ml @ 100 mls/hr IVPB ONCE ONE Rx#:[id number] Blood Product 0 / 0 350 / 350 Rbcs Leuko Poor As-1 Irr Unit 0 / 0 350 / 350 [id number] Output: Urine 200 / 200 475 / 475 Other: Weight 133.719 kg 133.6 kg Patient Weight 04/07/18 23:59 Weight 133.6 kg - General Appearance Exam: General: AAO, no acute distress HEENT: Atraumatic, normocephalic, PERRL CV: RRR, no murmurs, no BLE Resp: Expiratory wheezes noted RUL, no accessory muscle use GI: Soft, non-tender, non-distended, bowel sounds present Skin: ecchymosis noted on R antecubital region. Otherwise warm, dry Neuro: A&Ox3, no focal deficits Psych: Appropriate mood and behavior Results - Lab Results 04/07/18 06:23 04/07/18 06:23 Most recent lab results Calcium 8.6 mg/dL (8.6-10.3) 04/07/18 06:23 Magnesium 1.3 mg/dL (1.6-2.6) L 04/07/18 06:23 Consult Discharge Plan - Plan Referrals: Felipe Workman MD [Primary Care Provider] -
[2018-04-07] MEDS ORDERED: 0.9 % Sodium Chloride 250 ML ONE ×2 (10:32→13:59)
[2018-04-07] MEDS: Pantoprazole 40 MG VIAL IVP SCH ×2 (10:40→17:27)
--- NOTE | 2018-04-07 15:06 | Oncology Inp Consult Note ---
<JamesWilda L - Last Filed: 04/07/18 16:52> Date of Encounter: 04/07/18 Time of Encounter: 15:04 Assessment and Plan (1) AJIT (acute kidney injury) Status: Acute Assessment and plan: Acute on Chronic renal disease at baseline CKD stage 3 s/p renal transplant Nephrology consulted for AJIT present on admission Evaluating UA and US (2) Anemia Status: Acute Assessment and plan: Acute on chronic anemia in the setting of AJIT on CKD and sepsis/pneumonia Acute GI loss remains within differential given his drop in hgb below baseline, normal MCV, positive FOBT, and decrease in hgb s/p transfusion GI has been consulted and planning for EGD/Colonoscopy tomorrow Platelet count and WBC count are normal Check PT/INR, PTT, Iron profile, ferritin, B12, folate and LDH Continue to transfuse to keep hgb >7 Further recommendations pending above workup He would benefit from additional follow up as outpatient with repeat doppler as mentioned below as well as continued follow up with nephrology, Dr. Roberts is considering EPO as outpatient. Qualifiers: Anemia type: other cause Other causes of anemia: other cause, not clas sified Qualified Code(s): D64.89 - Other specified anemias (3) DVT of upper extremity (deep vein thrombosis) Status: Acute Assessment and plan: Appears to be provoked in the setting of PRBC infiltration to RUE Discussed with vascular, due to nature of test unable to discern whether area is acute DVT versus extrinsic compression on vein from infiltrated blood DVT does appear to be located in same region as hematoma from PRBC transfusion infiltration He does not have any RUE pain and edema is well localized to area of infiltration In the setting of anemia where GI loss is yet to be ruled out, with acute provoked upper extremity DVT as discussed above, would recommend holding off on anticoagulation. Recommend repeat venous doppler RUE as outpatient in 2-3 weeks with outpatient follow up and further discussion on need for anticoagulation at that time Qualifiers: Affected thrombotic vein of extremity: brachial Laterality: right Qualified Code(s): I82.621 - Acute embolism and thrombosis of deep veins of right upper extremity (4) Pneumonia Status: Acute Assessment and plan: CXR on revealed worsening bilateral patchy pulmonary infiltrates consistent with a multifocal pneumonia Currently Levaquin, Zyvox, Zosyn, management per primary team Preliminary blood cultures NGTD Symptomatically improving Qualifiers: Pneumonia type: due to unspecified organism Laterality: unspecified laterality Lung location: unspecified part of lung Qualified Code(s): J18.9 - Pneumonia, unspecified organism - Data of Consult Patient: new to practice Requesting Physician: Toni Hurd Primary Care Provider: Felipe Workman MD - Consult Narrative Reason for consult: Anemia, RUE DVT History of present illness: Mr. 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 Patient state he began not feeling well around March 20 or so. He was diagnosed clinically with acute bronchitis on March 27 and started on Bactrim. He he presented to his PCP around 04/04/18 for worsening respiratory symptoms, chest x-ray showed a right-sided multifocal pneumonia and the patient was started on oral Levaquin which she has had 2 days of prior to presented to [facility] ER for worsening respiratory symptoms and persistent fever. He was admitted with pneumonia and initiated on IV Zyvox, IV Zosyn and IV Levaquin. He was also found to have an AJIT on presentation as well as anemia with hgb 6.9. Over the night, Mr. Roque had an infiltration of his PRBC transfusion in his right upper extremity. He had a right upper extremity doppler with preliminary report reading "Patient appears to be positive for DVT and negative for SVT in right upper extremity." He denies pain to his right extremity, he does have localized edema as well as what appears to be a hematoma to his inner right arm, above the elbow. He has no personal or family history of blood clots. No personal history of cancer.He denies chest pain, pain with inspiration, or any lower extremity pain/erythema/edema. His SOB and cough have improved since admission. In regards to his anemia, he denies any s/s bleeding such as hematochezia, melena or hematemesis. He has had a prior colonoscopy around September 2016 which was performed at [facility] and reportedly negative per patient. Past Med Surg Social Fam HX - Past Medical History Medical history: atrial fibrillation Additional medical history: right kidney transplant, Psychiatric history: anxiety - Past Surgical History Surgical History: other Additional surgical history: kidney transplant at 23 y.o. - Social History Smoking Status: Never smoker Smokeless Tobacco Status: No Alcohol use: none Drug use: none Medications and Allergies Allopurinol [Zyloprim 100 MG] 400 mg PO DAILY 10/28/16 [History] Aspirin [Lo-Dose Aspirin EC] 81 mg PO DAILY 10/28/16 [History] Atorvastatin [Lipitor] 40 mg PO HS 10/28/16 [History] Diltiazem HCl [Diltiazem 24Hr Cd] 120 mg PO DAILY 10/28/16 [History] Furosemide [Lasix] 40 mg PO BID 10/28/16 [History] Gemfibrozil [Lopid] 600 mg PO BIDWM 10/28/16 [History] Mycophenolate Sodium [Myfortic] 720 mg PO BID 10/28/16 [History] PredniSONE [Franky] 5 mg PO DAILY 10/28/16 [History] Ranitidine HCl [Acid [employer] Attorney] 150 mg PO DAILY 10/28/16 [History] Tacrolimus [Prograf] 1 mg PO QAM 10/28/16 [History] Calcitriol [Rocaltrol] 0.25 mcg PO DAILY 04/06/18 [History] Carvedilol 12.5 mg PO BID 04/06/18 [History] Ergocalciferol (VITAMIN D2) [Vitamin D2] 50,000 unit PO 2XW 04/06/18 [History] Sodium Bicarbonate 1,300 mg PO BID 04/06/18 [History] Tacrolimus [Prograf] 0.5 mg PO HS 04/06/18 [History] Allergy/AdvReac Type Severity Reaction Status Date / Time azithromycin [From Zithromax] AdvReac kidney Verified 04/06/18 15:02 transplant cephalexin [From Keflex] AdvReac transplant Verified 04/06/18 15:02 Penicillins AdvReac kidney Verified 04/06/18 15:02 transplant Constitutional: Absent: fatigue, night sweats, weakness Additional comments: subjective fevers prior to admission, decreased appetite since illness in March Cardiovascular: Absent: chest pain, palpitations Respiratory: Present: as per HPI, cough, dyspnea. Absent: hemoptysis, pain on inspiration Gastrointestinal: Absent: abdominal pain Genitourinary: Absent: dysuria, hematuria Musculoskeletal: Present: muscle weakness. Absent: neck pain Integumentary: Absent: rash, swelling, wounds Neurological: Absent: focal weakness, frequent falls Hematologic/Lymphatic: Present: as per HPI Oncology - Exam - Constitutional General appearance: cooperative, no acute distress, obese, no febrile - Head Head exam: Present: atraumatic - ENT ENT exam: Present: mucous membranes moist, normal oropharynx - Respiratory Respiratory exam: Present: CTAB. Absent: respiratory distress Additional comments: rhonchi to posterior RLL which cleared with cough - Cardiovascular Cardiovascular exam: Present: RRR Additional comments: distant heart sounds - GI/Abdominal GI/Abdominal exam: Present: normal bowel sounds, soft. Absent: guarding, rebound, tenderness - Extremities Exam Extremities exam: Absent: calf tenderness Additional comments: BLE normal inspection RUE with hematoma noted to inner right upper arm, above the median cubital vein, normal capillary refill to RUE, normal radial pulse 2+ - Neurological Exam Neurological exam: Present: alert, oriented X3, no focal deficits, strengths equal and symetr throughout - Psychiatric Psychiatric exam: Present: normal affect, normal mood - Skin Skin exam: Present: dry, intact, normal color, warm Consult Discharge Plan - Plan Referrals: Felipe Workman MD [Primary Care Provider] - Inpatient Charges Provider: Dr. Aren Estevez <Feng Estevez - Last Filed: 04/07/18 19:18> Date of Encounter: 04/07/18 - Data of Consult Requesting Physician: Toni Hurd Primary Care Provider: Felipe Workman MD - Attending Attestation I have seen and examined Mr. Roque and agree with Ms. James's assessment. Exam with an obese gentleman with mild rales on exam. right arm with signficant ecchymosis related to IV infiltration during blood transfusion. Mr. Roque has worsening chronic anemia. Iron studies appear adequate. Anemia appears to be primarily driven by chronic kidney disease and nephrology is planning for outpatient EPO. Agree with transfusion for now. Clinically, he does not appear to have ariane or chronic GI bleeding although presented with heme positive stool. EGD/colonoscopy unremarkable 18 months ago at [facility] and another is planned for tomorrow He has a possible provoked DVT related to an infiltrated IV. No pain and minimal swelling. As there is concern for GI bleed and given AJIT, would hold anticoagulation and repeat duplex doppler in 3-4 weeks. Inpatient Charges Provider: Dr. Aren Estevez Consult - Inpatient: [id number]
--- NOTE | 2018-04-07 15:08 | Electrocardiograph Report ---
[address] [address] Test Date: 2018-04-06 Pat Name: Calixto Roque Department: [id number] Room: 2A12 Gender: M Bulb Packer: : [id number] Requested By: Bebeto Goldstein Order Number: [id number] Reading MD: Uri Denise Measurements Intervals Adena Rate: 73 P: 48 WY: 229 QRS: 59 QRSD: 89 T: 71 QT: 364 QTc: 402 Interpretive Statements Sinus rhythm Prolonged WY interval Electronically Signed On 04-07-2018 15:07:17 EST by Uri Denise
[2018-04-07] MEDS ORDERED: SODIUM CHLORIDE/NAHCO3/KCL/PEG 4,000 ML SOLN.RECON PO ONE (17:00)
[2018-04-07] MEDS: Piperacillin/Tazobactam 3.375 GM in 0.9 % Sodium Chloride Mini Bag 100 ML IVPB SCH (17:26)
[2018-04-07] MEDS: *HR* Heparin 5,000 UNIT/ML VIAL SQ SCH (17:26)
[2018-04-07] MEDS: 0.9 % Sodium Chloride 1,000 ML IVC SCH (17:26)
[2018-04-07 17:57] LABS: Hematocrit 26.6 % (37.5-50.1)
[2018-04-07 18:00] LABS: Hemoglobin 8.3 g/dL (12.9-16.9)
[2018-04-07 18:08] LABS: INR 1.7; Prothrombin Time 19.2 Seconds (9.4-12.1)
[2018-04-07 18:11] LABS: Activated Partial Thrombo Time 34.5 Seconds (26.0-36.0)
[2018-04-07 18:19] LABS: % Iron Saturation 15 % (20-55); Iron 27 mcg/dL (65-175); Lactate Dehydrogenase 213 Units/L (140-271); Transferrin 127 mg/dL (203-362)
[2018-04-07 18:37] LABS: Ferritin 768 ng/mL (20-250)
[2018-04-07 18:42] LABS: Folate 9.9 ng/mL (3.0-16.0)
--- NOTE | 2018-04-07 19:06 | Anesthesia Evaluation PreOp ---
Date of Encounter: 04/07/18 Time of Encounter: 19:04 - Past History Planned Operation: EGD/colonoscopy (heme-occult positive) Cardiac History: HTN, Hyperlipidemia, Arrhythmia (A flutter (s/p ablation 3 years ago - no issues since)), Other (limited functional capacity due to orthopaedic reasons) Pulmonary History: Former smoker (quit 15 years ago), RADHA Dx (uses Bipap), Other (acute pneumonia) Other Medical History: Renal (renal transplant at age 25 - has been on prednisone ever since; never been on dialysis but has a LUE fistula; acute on chronic renal failure), Bleeding (heme-occult positive - anemic and s/p 3U RBC' s), GERD, Other (BMI 39, anemia of chronic disease - acutely worse) Anesthesia History: No Prior Anesthetic Complications Alcohol Use: none Drug use: none Medications and Allergies Allopurinol [Zyloprim 100 MG] 400 mg PO DAILY 10/28/16 [History] Aspirin [Lo-Dose Aspirin EC] 81 mg PO DAILY 10/28/16 [History] Atorvastatin [Lipitor] 40 mg PO HS 10/28/16 [History] Diltiazem HCl [Diltiazem 24Hr Cd] 120 mg PO DAILY 10/28/16 [History] Furosemide [Lasix] 40 mg PO BID 10/28/16 [History] Gemfibrozil [Lopid] 600 mg PO BIDWM 10/28/16 [History] Mycophenolate Sodium [Myfortic] 720 mg PO BID 10/28/16 [History] PredniSONE [Franky] 5 mg PO DAILY 10/28/16 [History] Ranitidine HCl [Acid Company Dancer] 150 mg PO DAILY 10/28/16 [History] Tacrolimus [Prograf] 1 mg PO QAM 10/28/16 [History] Calcitriol [Rocaltrol] 0.25 mcg PO DAILY 04/06/18 [History] Carvedilol 12.5 mg PO BID 04/06/18 [History] Ergocalciferol (VITAMIN D2) [Vitamin D2] 50,000 unit PO 2XW 04/06/18 [History] Sodium Bicarbonate 1,300 mg PO BID 04/06/18 [History] Tacrolimus [Prograf] 0.5 mg PO HS 04/06/18 [History] Allergy/AdvReac Type Severity Reaction Status Date / Time azithromycin [From Zithromax] AdvReac kidney Verified 04/06/18 15:02 transplant cephalexin [From Keflex] AdvReac transplant Verified 04/06/18 15:02 Penicillins AdvReac kidney Verified 04/06/18 15:02 transplant - Meds/Allergy Pre-op Review Medications Reviewed: Yes Allergies Reviewed: Yes Beta Blockers on Current Med List: Yes (coreg) If Beta Blockers taken, Date/Time (Last Dose taken): 04-07-18 coreg at 17:25 Anesthesia Results - Labs 04/07/18 17:47 04/07/18 06:23 - Imaging EKG: report reviewed, image reviewed (Sinus rhythm Prolonged IL interval) Additional studies: TTE: Impressions: LVEF 60-65%. Normal LV chamber size and function. Mild to moderate concentric left ventricular hypertrophy. Moderate left ventricular diastolic dysfunction. Normal right ventricular structure and function. No evidence of pulmonary hypertension. No significant valvular dysfunction. Anesthesia Exam Last Vital Signs Temp 98.7 F 04/07/18 16:49 Pulse 67 04/07/18 16:49 Resp 16 04/07/18 16:49 BP 171/80 04/07/18 16:49 Pulse Ox 96 04/07/18 16:49 Weight: 134 kg NPO (# of Hours): > 8 hrs - HEENT Pupil (Motor): Pupils equal, EOMI Mallampati: II Teeth: Edentulous Oral Opening: Greater than 3 - SNUBBER LOC: Oriented - Cardiac Rhythm: Regular Murmur: None - Pulmonary Breath Sounds: bilateral Clear Respiratory Effort: Symmetrical Anesthesia Assess/Plan ASA Score: 3 Level of consciousness: Cooperative Anesthetic Plan: MAC, Precautions (stress dose steroids likely needed) Monitoring Plan: Standard Monitors Recovery Plan: PACU
[2018-04-07] MEDS: TACROLIMUS 0.5 MG PO SCH (20:43)
[2018-04-08] MEDS: Piperacillin/Tazobactam 3.375 GM in 0.9 % Sodium Chloride Mini Bag 100 ML IVPB SCH ×4 (00:34→23:20)
[2018-04-08] MEDS: Pantoprazole 40 MG VIAL IVP SCH ×2 (05:13→16:46)
[2018-04-08 05:42] LABS: Basophils % 0.3 %; Eosinophils # 0.2 K/mcL (0.0-0.6); Eosinophils % 2.5 %; Hematocrit 25.8 % (37.5-50.1); Hemoglobin 8.2 g/dL (12.9-16.9); Immature Granulocytes % 0.8 % (0-4); Lymphocytes # 0.8 K/mcL (0.6-4.6); Lymphocytes % 8.1 %; Mean Corpuscular HGB Conc 31.8 g/dL (31.6-35.5); Mean Corpuscular Hemoglobin 28.8 pg (28.0-33.3); Mean Corpuscular Volume 90.5 fL (83.0-100.0); Mean Platelet Volume 10.1 fL (9.4-12.4); Monocytes # 0.7 K/mcL (0.0-1.3); Monocytes % 7.9 %; Neutrophils # 7.4 K/mcL (1.6-8.9); Platelet Count 311 K/mcL (140-400); Red Blood Count 2.85 M/mcL (4.19-5.50); Red Cell Distribution Width 14.5 % (11.5-14.5); Segmented Neutrophils % 80.4 %
[2018-04-08 06:04] LABS: Calcium 8.8 mg/dL (8.6-10.3); Magnesium 1.6 mg/dL (1.6-2.6); Phosphorous 3.6 mg/dL (2.7-4.5); Potassium 4.8 mEq/L (3.5-5.1)
--- NOTE | 2018-04-08 07:46 | Internal Med Progress Note ---
Hospitalist Progress Note - Encounter Date of Encounter: 04/08/18 Time of Encounter: 07:40 - Subjective Interval History: 47-year-old male. He underwent a kidney transplant at his age of 23.It was about 10 days ago, when he developed coughing. Subsequently, he started treatment for acute bronchitis. It was treated with oral Bactrim. 2 days ago, he was diagnosed with pneumonia. Started on oral Levaquin. The patient continues to have coughing. He feels progressively weaker/tired. His blood test done in our emergency room showed worsening of his chronic anemia. And acute on chronic renal failure - Exam Vitals: Temp Pulse Resp BP Pulse Ox 99.2 F 83 20 191/83 95 04/08/18 07:14 04/08/18 07:14 04/08/18 07:14 04/08/18 07:14 04/08/18 07:14 Exam: Gen - Awake, alert, oriented x 3, no acute distress HEENT - NCAT, PERRLA, EOMI, hearing grossly intact, oropharynx benign CV - RRR, normal S1 and S2, no M/R/G, no BLE edema Resp - Normal WOB, CTAB, no W/R/R GI - Soft, NT/ND, no masses, normal bowel sounds, Skin - Warm, dry, no rashes/lesions/ulcers Psych - Normal mood and affect, no depression or anxiety - Assessment and Plan (1) Multifocal pneumonia Current Visit: Yes Status: Acute Assessment and Plan: Pt comes in with coughing of a couple of days duration. CXR shows multifocal pneumonia Continue zosyn. Follow blood cultures, urine legionella and streptococcal antigen (2) Anemia Current Visit: Yes Status: Acute Assessment and Plan: Anemia likely secondary to CKD and acute blood loss from possible GI bleed. Transfused one unit of hemoglobin on 04/06 but hemoglobin dropped from 6.9 to 6.2 on 04/07 Transfused 2 units PRBC. Start protonix 40mg IV BID. Hemoglobin stable this am GI planning for endoscopy/ colonoscopy today (3) DVT of upper extremity (deep vein thrombosis) Current Visit: Yes Status: Acute Assessment and Plan: New DVT noted in right upper extremity. Pt has GI bleed and cannot be anticoagulated at this time Seen by oncology who recommend outpatient repeat ultrasound at which point decision will be made as to whether patient needs anticoagulation Unclear if patient has a true DVT given findings were after an infiltrated line was removed (4) Kidney transplant recipient Current Visit: Yes Status: Chronic Assessment and Plan: Continue immunosuppressive regimen. Renal on board. Avoid nephrotoxic drugs (5) AJIT (acute kidney injury) Current Visit: Yes Status: Acute Assessment and Plan: Acute kidney injury on chronic renal disease stage 5 s/p kidney transplant. IV fluids. Avoid nephrotoxins (6) Atrial fibrillation Current Visit: Yes Status: Acute Assessment and Plan: Rate controlled. continue diltiazem. No indication to anticaogulate (7) Diastolic CHF Current Visit: Yes Status: Acute Assessment and Plan: No acute exacerbation. Will continue lasix as tolerated DVT Prophylaxis: heparin sc - Time Spent with Patient Total time spent is greater than 50% in coordination of care (as documented) at patient's floor/unit and/or counseling patient: Internal Medicine: Result - Labs CBC & Chem 7: 04/08/18 03:59 04/08/18 03:59 Labs: Short CBC 04/07/18 04/08/18 Range/Units 17:47 03:59 WBC 9.2 (4.3-11.1) K/mcL Hgb 8.3 L D 8.2 L (12.9-16.9) g/dL Hct 26.6 L 25.8 L (37.5-50.1) % Plt Count 311 (140-400) K/mcL Neutrophils # 7.4 (1.6-8.9) K/mcL BMP 04/08/18 03:59 Sodium 139 Potassium 4.8 Chloride 110 H Carbon Dioxide 16 L BUN 48 H Creatinine 4.09 H Glucose 86 Calcium 8.8 - ABG Interpretation ABG results: PT/INR, D-dimer PT 19.2 Seconds (9.4-12.1) H 04/07/18 17:47 - VTE Deep Vein Thrombosis/Pulmonary Embolism Present on Admission: No Consult Discharge Plan - Plan Referrals: Felipe Workman MD [Primary Care Provider] - (2) Anemia Qualifiers: Anemia type: other cause Other causes of anemia: other cause, not classified Qualified Code(s): D64.89 - Other specified anemias (3) DVT of upper extremity (deep vein thrombosis) Qualifiers: Affected thrombotic vein of extremity: brachial Laterality: right Qualified Code(s): I82.621 - Acute embolism and thrombosis of deep veins of right upper extremity (6) Atrial fibrillation Qualifiers: Atrial fibrillation type: chronic Qualified Code(s): I48.2 - Chronic atrial fibrillation (7) Diastolic CHF Qualifiers: Heart failure chronicity: chronic Qualified Code(s): I50.32 - Chronic diastolic (congestive) heart failure
[2018-04-08] MEDS: predniSONE 5 MG TABLET PO SCH (08:35)
[2018-04-08] MEDS: Mycophenolate Sodium (DR) 180 MG TABLET.DR PO SCH ×2 (08:36→20:28)
[2018-04-08] MEDS: Aspirin Enteric Coated 81 MG Tablet PO SCH (08:36)
[2018-04-08] MEDS: Diltiazem CD (24hr) 120 MG CAPSULE PO SCH (08:36)
[2018-04-08] MEDS: Tacrolimus [Prograf] 1 MG PO SCH (08:44)
--- NOTE | 2018-04-08 09:50 | Nephrology Progress Note ---
Date of Encounter: 04/08/18 Time of Encounter: 09:30 - Assessment and Plan (1) AJIT (acute kidney injury) Current Visit: Yes Status: Acute AJIT on CKD (baseline stage 3 s/p R renal transplant 22 years ago). BUN 48 04/08/18 (53 upon admission 04/06/18), Creatinine 4.09 04/08/18 (4.61 upon admission 04/06/18) GFR 16 04/08/18 (14 upon admission 04/06/18). Renal function is improving. Continue MIV, avoid nephrotoxins. 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 Continue immunosuppressive home meds. (3) Anemia Current Visit: Yes Status: Acute Anemia likely secondary to CKD and possible GI bleed. Hgb improved to 8.3 yesterday from 6.2 with 2 units of PRBCs, but down to 8.2 today. GI performed EGD and colonoscopy for today which show severe internal hemorrhoids and gastritis but normal esophagus and sigmoid diverticula. Continue monitoring Qualifiers: Anemia type: other cause Other causes of anemia: other cause, not classified Qualified Code(s): D64.89 - Other specified anemias (4) Metabolic acidosis Current Visit: Yes Status: Acute Bicarb of 16, down from 19 at time of admission on 04/06/18. Continue 1300mg PO BID sodium bicarb and monitoring. (5) Pneumonia Current Visit: Yes Status: Acute Agree with linezolid vs. vancomycin due to patient's AJIT. Primary team managing. Qualifiers: Pneumonia type: due to unspecified organism Laterality: unspecified laterality Lung location: unspecified part of lung Qualified Code(s): J18.9 - Pneumonia, unspecified organism (6) Atrial fibrillation Current Visit: Yes Status: Acute Qualifiers: Atrial fibrillation type: chronic Qualified Code(s): I48.2 - Chronic atrial fibrillation (7) Elevated troponin Current Visit: Yes Status: Acute (8) Diastolic CHF Current Visit: Yes Status: Acute Qualifiers: Heart failure chronicity: chronic Qualified Code(s): I50.32 - Chronic diastolic (congestive) heart failure (9) Hypertension Current Visit: Yes Status: Acute BP up to 191/83 on 0714 04/08/18. Currently holding CINTHIA-I due to patient's AJIT on CKD. Treating with Cardizem and Coreg. Qualifiers: Hypertension type: unspecified Qualified Code(s): I10 - Essential (primary) hypertension (10) Sepsis Current Visit: Yes Status: Resolved Patient met SIRS criteria for sepsis (RR 22, WBC 13.1) on 04/06/18 upon admission. Currently resolved with RR 20 at 0714 04/08/18 and WBC 9.2 04/08/18 Qualifiers: Sepsis type: sepsis due to unspecified organism Qualified Code(s): A41.9 - Sepsis, unspecified organism Subjective Principal diagnosis: Pneumonia Interval history: Mr. Roque is a 47 year old male seen bedside on hospital day 2 for AJIT on CKD s/p R renal transplant 22 years ago with CC of "difficulty breathing" due to pneumonia. Patient was sitting upright on side of bed and is to get EGD and colonoscopy today per GI to rule out causes for chronic anemia worsening. Patient reports no problems today, cough has gotten better and is less productive, with no blood produced with cough. Patient denies fever, chills, nausea, vomiting, chest pain, palpitations, shortness of breath, abdominal pain, constipation, changes in urination, burning on urination, urinary hesitancy and admits cough, diarrhea (due to colonoscopy prep). Objective - Vital Signs Vital signs: Vital Signs Temp Pulse Resp BP Pulse Ox 04/08/18 07:14 99.2 F 83 20 191/83 95 04/08/18 04:47 98.2 F 93 17 182/95 93 04/07/18 22:38 99.2 F 76 15 171/87 94 04/07/18 19:34 98.1 F 61 16 161/83 97 04/07/18 16:49 98.7 F 67 16 171/80 96 04/07/18 15:20 98.7 F 63 18 166/82 96 04/07/18 14:06 99.1 F 65 16 158/77 96 04/07/18 13:27 99.1 F 65 16 158/77 96 04/07/18 11:53 98.3 F 66 18 134/71 95 04/07/18 11:00 98.3 F 68 16 155/82 04/07/18 10:45 98.6 F 66 16 153/78 96 Intake and Output 04/07/18 04/08/1819 23:59 07:59 15:59 Intake Total 750 / 750 100 / 100 Output Total 350 / 350 Balance 750 / 750 -250 / -250 Intake: IV Fluids 400 / 400 100 / 100 Zyvox Premix 600mg/300mL 600 mg 300 / 300 In 300 ml @ 150 mls/hr IVPB Q12HR COUNTS INCLUDE 234 BEDS AT THE [facility] Rx#:[id number] Zosyn 3.375 GM In 0.9 % Sodium 100 / 100 100 / 100 Chloride (Mini-Bag +) 100 ML @ 25 mls/hr IVPB Q8HR COUNTS INCLUDE 234 BEDS AT THE [facility] Rx#: [id number] Blood Product 350 / 350 Rbcs Leuko Poor As-1 Irr Unit 350 / 350 [id number] Output: Urine 350 / 350 Other: Stool Consistency liquid Stool Color Yellow Weight 133 kg Patient Weight 04/08/18 23:59 Weight 133 kg - General Appearance Exam: Gen: AAO, no acute distress HEENT: atraumatic, normocephalic, mucus membranes moist CV: RRR, no murmurs, S1 present, S2 present, no edema Resp: LCTAB, no wheezes, rales or rhonchi, no accessory muscle use Abd: soft, nontender, no guarding. Bowel sounds present Skin: Ecchymosis noted on R antecubital region Neuro: A&Ox3, no focal deficits Psych: appropriate mood & behavior - Lab 04/08/18 03:59 04/08/18 03:59 Most recent lab results Calcium 8.8 mg/dL (8.6-10.3) 04/08/18 03:59 Phosphorus 3.6 mg/dL (2.7-4.5) 04/08/18 03:59 Magnesium 1.6 mg/dL (1.6-2.6) 04/08/18 03:59 - VTE Deep Vein Thrombosis/Pulmonary Embolism Present on Admission: No Consult Discharge Plan - Plan Referrals: Felipe Workman MD [Primary Care Provider] -
[2018-04-08] MEDS ORDERED: Sodium Bicarbonate 150 MEQ in D5% in Water 1,000 ML IVC SCH (11:15)
[2018-04-08] MEDS: 0.9 % Sodium Chloride 1,000 ML IVC SCH (11:34)
[2018-04-08] MEDS ORDERED: Lidocaine -MPF 2% 2 ML VIAL ONE (12:22)
[2018-04-08] MEDS ORDERED: Propofol 500 MG/50 ML INFUS..BTL ONE (12:22)
--- NOTE | 2018-04-08 13:13 | Anesthesia Evaluation Post Op ---
Date of Encounter: 04/08/18 Time of Encounter: 13:20 - Vital Signs Vital Signs: Vital Signs/O2 Sat/Glucose, Most Current Temp Pulse Resp BP Pulse Ox 04/08/18 12:44 98.4 F 85 17 188/86 98 04/08/18 11:15 98.4 F 77 17 184/85 96 - Lungs Lungs: Clear Ascult./Percussion - Airway Airway: Non-obstructed - Cardiovascular Regular Rate - Mental Status Mental Status: Alert & Oriented, Answers Appropriately - Pain Pain Scale: 0 - Nausea Vomiting Nausea Vomiting: Not Present - Hydration Hydration: NPO - Discharge PostOp Status: Transfer Patient to floor
[2018-04-08] MEDS: *HR* Heparin 5,000 UNIT/ML VIAL SQ SCH (17:49)
--- NOTE | 2018-04-08 18:10 | Oncology Inp Progress Note ---
<Wilda James L - Last Filed: 04/08/18 19:02> Date of Encounter: 04/08/18 Time of Encounter: 13:00 (1) AJIT (acute kidney injury) Current Visit: Yes Status: Acute Assessment and plan: Acute on Chronic renal disease at baseline CKD stage 3 s/p renal transplant Nephrology consulted for AJIT present on admission Renal function improving (2) Anemia Current Visit: Yes Status: Acute Assessment and plan: Acute on chronic anemia in the setting of AJIT on CKD and sepsis/pneumonia GI loss was differential given his drop in hgb below baseline, normal MCV, positive FOBT, and decrease in hgb s/p transfusion Platelet count and WBC count are normal Status post EGD and colonoscopy today. Colonoscopy revealed diverticulosis with internal hemorrhoids. EGD revealed gastritis which was biopsied. Nutritional stores appear adequate, appears functional iron deficiency with ferritin 768 LDH normal He has responded to receive transfusions with hemoglobin 8.2 today He would benefit from additional follow up as outpatient with repeat doppler as mentioned below as well as continued follow up with nephrology, Dr. Roberts is considering EPO as outpatient. Qualifiers: Anemia type: other cause Other causes of anemia: other cause, not classified Qualified Code(s): D64.89 - Other specified anemias (3) DVT of upper extremity (deep vein thrombosis) Current Visit: Yes Status: Acute Assessment and plan: Appears to be provoked in the setting of PRBC infiltration to RUE Discussed with vascular, due to nature of test unable to discern whether area is acute DVT versus extrinsic compression on vein from infiltrated blood DVT does appear to be located in same region as area of apparent PRBC transfusion infiltration He does not have any RUE pain and edema is well localized to area of infiltration In the setting of anemia and renal transplant with CKD, with acute provoked upper extremity DVT, would recommend holding off on anticoagulation Recommend repeat venous doppler RUE as outpatient in 2-3 weeks with outpatient follow up and further discussion on need for anticoagulation at that time We will plan to arrange repeat doppler and follow up with Dr. Estevez as outpatient Otherwise, will plan to sign off at this time Qualifiers: Affected thrombotic vein of extremity: brachial Laterality: right Qualified Code(s): I82.621 - Acute embolism and thrombosis of deep veins of right upper extremity (4) Pneumonia Current Visit: Yes Status: Acute Assessment and plan: CXR on revealed worsening bilateral patchy pulmonary infiltrates consistent with a multifocal pneumonia Currently Levaquin, Zyvox, Zosyn, management per primary team Preliminary blood cultures NGTD Symptomatically improving Qualifiers: Pneumonia type: due to unspecified organism Laterality: unspecified laterality Lung location: unspecified part of lung Qualified Code(s): J18.9 - Pneumonia, unspecified organism Oncology: Subj Interval history: Mr. Roque endorses symptomatic improvement in his respiratory symptoms since admission. Sating well on room air. Appetite and energy stable. at bedside. S/P scopes today. Continues to deny pain to RUE or edema other than in location of PRBC transfusion infiltration. - Constitutional General appearance: cooperative, no acute distress, no febrile - Head Head exam: Present: atraumatic - ENT ENT exam: Present: mucous membranes moist, normal oropharynx - Respiratory Respiratory exam: Present: rhonchi. Absent: respiratory distress - Cardiovascular Cardiovascular exam: Present: RRR, +S1, +S2 - GI/Abdominal GI/Abdominal exam: Present: normal bowel sounds, soft. Absent: tenderness - Extremities Exam Extremities exam: Present: normal inspection. Absent: calf tenderness - Neurological Exam Neurological exam: Present: alert, oriented X3, no focal deficits, strengths equal and symetr throughout - Psychiatric Psychiatric exam: Present: normal affect, normal mood - Skin Additional comments: ecchymosis with edema noted to medial aspect of right upper extremity, radial pulses 2+, cap refill normal, no other edema noted to RUE Oncology: Obj Data - Labs CBC & Chem 7: 04/08/18 03:59 04/08/18 03:59 Consult Discharge Plan - Plan Referrals: Felipe Workman MD [Primary Care Provider] - Inpatient Charges Provider: Dr. Aren Estevez <Feng Estevez - Last Filed: 04/08/18 21:33> Date of Encounter: 04/08/18 Oncology: Obj Data - Labs CBC & Chem 7: 04/08/18 03:59 04/08/18 03:59 Inpatient Charges Provider: Dr. Aren Estevez Follow up - Inpatient: [id number] - Attending Attestation I examined this patient and my medical decision-making was reviewed with the Advanced Practice Nurse. I agree with the documented findings, disposition and treatment plan as described except to the extent set forth below. He is feeling better today. Improved breathing and energy. No increase in right arm swelling. No discomfort and right arm. Hemoglobin has improved after transfusion. 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 I will set him up for a visit with me in the outpatient setting with repeat duplex Doppler the right arm. As he has an asymptomatic provoked thrombosis that appears secondary to infiltrated IV, I recommend conservative measures without anticoagulation for the time being. We will sign off. Please call with concerns or questions
[2018-04-08] MEDS: TACROLIMUS 0.5 MG PO SCH (20:25)
[2018-04-09 05:42] LABS: Basophils % 0.2 %; Eosinophils # 0.3 K/mcL (0.0-0.6); Eosinophils % 3.6 %; Hematocrit 24.6 % (37.5-50.1); Hemoglobin 7.5 g/dL (12.9-16.9); Immature Granulocytes % 1.1 % (0-4); Lymphocytes # 0.7 K/mcL (0.6-4.6); Lymphocytes % 7.7 %; Mean Corpuscular HGB Conc 30.5 g/dL (31.6-35.5); Mean Corpuscular Hemoglobin 28.6 pg (28.0-33.3); Mean Corpuscular Volume 93.9 fL (83.0-100.0); Mean Platelet Volume 9.9 fL (9.4-12.4); Monocytes # 0.8 K/mcL (0.0-1.3); Monocytes % 9.1 %; Neutrophils # 6.6 K/mcL (1.6-8.9); Platelet Count 280 K/mcL (140-400); Red Blood Count 2.62 M/mcL (4.19-5.50); Red Cell Distribution Width 14.5 % (11.5-14.5); Segmented Neutrophils % 78.3 %
[2018-04-09] MEDS: 0.9 % Sodium Chloride 1,000 ML IVC SCH (06:24)
[2018-04-09] MEDS: *HR* Heparin 5,000 UNIT/ML VIAL SQ SCH ×2 (06:25→16:46)
[2018-04-09] MEDS: Pantoprazole 40 MG VIAL IVP SCH (06:25)
[2018-04-09] MEDS ORDERED: Levofloxacin 500 MG/100 ML 500 MG/100 ML BAG IVPB SCH (08:00)
[2018-04-09 08:04] LABS: Calcium 8.4 mg/dL (8.6-10.3); Magnesium 1.4 mg/dL (1.6-2.6); Phosphorous 2.7 mg/dL (2.7-4.5); Potassium 4.5 mEq/L (3.5-5.1)
[2018-04-09] MEDS: Diltiazem CD (24hr) 120 MG CAPSULE PO SCH (08:09)
[2018-04-09] MEDS: Mycophenolate Sodium (DR) 180 MG TABLET.DR PO SCH (08:09)
[2018-04-09] MEDS: Aspirin Enteric Coated 81 MG Tablet PO SCH (08:09)
[2018-04-09] MEDS: predniSONE 5 MG TABLET PO SCH (08:09)
[2018-04-09] MEDS: Piperacillin/Tazobactam 3.375 GM in 0.9 % Sodium Chloride Mini Bag 100 ML IVPB SCH ×2 (08:11→16:24)
[2018-04-09] MEDS ORDERED: TACROLIMUS 0.5 MG PO SCH (09:00)
--- NOTE | 2018-04-09 10:49 | Nephrology Progress Note ---
Date of Encounter: 04/09/18 Time of Encounter: 09:50 - Assessment and Plan (1) AJIT (acute kidney injury) Current Visit: Yes Status: Acute AJIT on CKD (baseline stage 3 s/p R renal transplant 22 years ago). BUN 40 04/09/18 (53 upon admission 04/06/18), Creatinine 3.85 04/09/18 (4.61 upon admission 04/06/18) GFR 17 04/09/18 (14 upon admission 04/06/18). Renal function continues to improve. Continue MIV, avoid nephrotoxins. 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 Continue immunosuppressive home meds. (3) Anemia Current Visit: Yes Status: Acute Anemia likely secondary to CKD and possible GI bleed. Hgb decreased to 7.5 today from 8.2 yesterday after transfusion of 3 units PRBC on 04/07/18; worsened Hgb likely due to fluids onboard. EGD and colonoscopy yesterday which show severe internal hemorrhoids and gastritis but normal esophagus and sigmoid diverticulosis. Continue monitoring Qualifiers: Anemia type: other cause Other causes of anemia: other cause, not classified Qualified Code(s): D64.89 - Other specified anemias (4) Metabolic acidosis Current Visit: Yes Status: Acute Metabolic acidosis likely secondary to AJIT on CKD in setting of renal transplant. Bicarb of 16, down from 19 at time of admission on 04/06/18. Patient received IV 150 mEq of sodium bicarbonate yesterday but bicarb did not change from yesterday's value of 16. Continue 1300mg PO BID sodium bicarb with additional bolus IV sodium bicarbonate and continue monitoring. (5) Pneumonia Current Visit: Yes Status: Acute Agree with linezolid vs. vancomycin due to patient's AJIT. Primary team managing Qualifiers: Pneumonia type: due to unspecified organism Laterality: unspecified laterality Lung location: unspecified part of lung Qualified Code(s): J18.9 - Pneumonia, unspecified organism (6) Atrial fibrillation Current Visit: Yes Status: Acute Qualifiers: Atrial fibrillation type: chronic Qualified Code(s): I48.2 - Chronic atrial fibrillation (7) Elevated troponin Current Visit: Yes Status: Acute (8) Diastolic CHF Current Visit: Yes Status: Acute Qualifiers: Heart failure chronicity: chronic Qualified Code(s): I50.32 - Chronic diastolic (congestive) heart failure (9) Hypertension Current Visit: Yes Status: Acute BP down to 166/82 at 0803 04/09/18 from 191/83 on 0714 04/08/18 with addition of 100mg Cozaar yesterday. Treating with Cardizem, Cozaar and Coreg. Continue monitoring. Qualifiers: Hypertension type: unspecified Qualified Code(s): I10 - Essential (primary) hypertension (10) Sepsis Current Visit: Yes Status: Resolved Patient met SIRS criteria for sepsis (RR 22, WBC 13.1) on 04/06/18 upon admission. Currently resolved with RR 16 at 0803 04/09/18 and WBC 8.5 04/09/18 Qualifiers: Sepsis type: sepsis due to unspecified organism Qualified Code(s): A41.9 - Sepsis, unspecified organism Subjective Principal diagnosis: AJIT on CKD s/p renal transplant Interval history: Mr. Roque is a 47 year old male seen bedside on hospital day 4 for AJIT on CKD s/p R renal transplant 22 years ago with CC of "difficulty breathing" due to pneumonia. Patient received EGD and colonoscopy yesterday that showed no esophageal involvement, gastritis, sigmoid diverticulosis and internal hemorrhoids. Patient reports dull intermittent central abdominal pain but no tenderness or guarding, no cough. Patient admits abdominal pain but denies fever, chills, nausea, vomiting, chest pain, palpitations, shortness of breath, constipation, changes in urination, burning on urination, urinary hesitancy. Objective - Vital Signs Vital signs: Vital Signs Temp Pulse Resp BP Pulse Ox 04/09/18 08:03 99.0 F 72 16 166/82 96 04/09/18 04:42 98.1 F 84 17 159/73 97 04/09/18 01:17 99.4 F 74 17 161/85 94 04/08/18 20:32 89 96 04/08/18 19:40 98.5 F 83 18 167/79 96 04/08/18 15:55 98.4 F 80 17 169/84 95 04/08/18 12:44 98.4 F 85 17 188/86 98 04/08/18 11:15 98.4 F 77 17 184/85 96 Intake and Output 04/08/18 04/09/1804/09/19 23:59 07:59 15:59 Intake Total 220 / 220 1100 / 1100 Balance 220 / 220 1100 / 1100 Intake: IV Fluids 100 / 100 1100 / 1100 0.9 % Sodium Chloride 1,000 ML 1000 / 1000 @ 75 mls/hr IVC .[id number] [facility] Rx #:[id number] Zosyn 3.375 GM In 0.9 % Sodium 100 / 100 100 / 100 Chloride (Mini-Bag +) 100 ML @ 25 mls/hr IVPB Q8HR [facility] Rx#: [id number] Oral 120 / 120 Other: Meal Dinner Percent of Meal Consumed 100% Weight 134.1 kg Patient Weight 04/09/18 23:59 Weight 134.1 kg - General Appearance Exam: Gen: AAO, no acute distress HEENT: atraumatic, normocephalic, mucus membranes moist CV: RRR, no murmurs, S1 present, S2 present, no edema Resp: LCTAB, no wheezes, rales or rhonchi, no accessory muscle use Abd: soft, nontender, no guarding, no rebound tenderness. Bowel sounds present Skin: Ecchymosis noted on R antecubital region Neuro: A&Ox3, no focal deficits Psych: appropriate mood & behavior - Lab 04/09/18 04:16 04/09/18 06:45 Most recent lab results Calcium 8.4 mg/dL (8.6-10.3) L 04/09/18 06:45 Phosphorus 2.7 mg/dL (2.7-4.5) 04/09/18 06:45 Magnesium 1.4 mg/dL (1.6-2.6) L 04/09/18 06:45 - VTE Deep Vein Thrombosis/Pulmonary Embolism Present on Admission: No Consult Discharge Plan - Plan Referrals: Felipe Workman MD [Primary Care Provider] -
[2018-04-09 12:54] VITALS: BP 127/74
[2018-04-09 16:18] LABS: Hematocrit 31.9 % (37.5-50.1)
--- NOTE | 2018-04-09 16:35 | Discharge Summary ---
- NOTES TO OUTPATIENT PROVIDER Notes to Outpatient Provider: Patient with history of renal transplant, atrial fibrillation was hospitalized here with pneumonia and acute kidney injury and chronic kidney disease. He also had severe anemia and required 3 units PRBC transfusion. Patient had been on Bactrim as outpatient for possible bronchitis. This likely contributed to his acute kidney injury. Patient was switched over to intravenous Zyvox, Zosyn and Levaquin initially to treat his pneumonia. As his symptoms improved, these were de-escalated. Patient is now doing much better. He did undergo upper GI endoscopy and colonoscopy yesterday which showed internal hemorrhoids. Patient also has a right upper extremity DVT but g iven his anemia and possible bleed from internal hemorrhoids, oncology hematology was consulted and they do not recommend any anticoagulation for now. They will evaluate the patient later in clinic. Patient has been on PPI and his hemoglobin level this afternoon was 10. He is stable to be discharged home. His renal function is improving and he will follow up with nephrology as outpatient for further management. Orders not resulted at time of discharge: Pending orders 04/06/18 15:27 Culture,Blood [BC] Stat 04/08/18 13:12 Surgical Pathology [PTH] Routine 04/09/18 20:00 Hemoglobin and Hematocrit [HEME] Q6H 04/10/18 04:00 Basic Metabolic Panel AM 0400 Basic Metabolic Panel AM 0400 CBC [Complete Blood Count] [HEME] AM 0400 Complete Blood Count [HEME] AM 0400 Magnesium AM 0400 Phosphorous AM 0400 04/11/18 04:00 Basic Metabolic Panel AM 0400 CBC [Complete Blood Count] [HEME] AM 0400 Magnesium AM 0400 Phosphorous AM 0400 04/12/18 04:00 Basic Metabolic Panel AM 0400 CBC [Complete Blood Count] [HEME] AM 0400 Magnesium AM 0400 Phosphorous AM 0400 04/13/18 04:00 Basic Metabolic Panel AM 0400 CBC [Complete Blood Count] [HEME] AM 0400 Magnesium AM 0400 Phosphorous AM 0400 Date of Encounter: 04/09/18 Time of Encounter: 16:33 - Discharge Diagnosis (1) AJIT (acute kidney injury) Priority: Primary Status: Acute (2) Multifocal pneumonia Priority: Secondary Status: Acute (3) Kidney transplant recipient Priority: Secondary Status: Chronic (4) Anemia Priority: Secondary Status: Acute Qualifiers: Anemia type: other cause Other causes of anemia: other cause, not classified Qualified Code(s): D64.89 - Other specified anemias (5) Atrial fibrillation Priority: Secondary Status: Acute Qualifiers: Atrial fibrillation type: chronic Qualified Code(s): I48.2 - Chronic atrial fibrillation (6) Diastolic CHF Priority: Secondary Status: Acute Qualifiers: Heart failure chronicity: chronic Qualified Code(s): I50.32 - Chronic diastolic (congestive) heart failure (7) DVT of upper extremity (deep vein thrombosis) Priority: Secondary Status: Acute Qualifiers: Affected thrombotic vein of extremity: brachial Laterality: right Qualified Code(s): I82.621 - Acute embolism and thrombosis of deep veins of right upper extremity Hospital course: Mr. Roque is a 47 year old male Patient with history of renal transplant, atrial fibrillation was hospitalized here with pneumonia and acute kidney injury and chronic kidney disease. He also had severe anemia and required 3 units [place] BC transfusion. Patient had been on Bactrim as outpatient for possible bronchitis. This likely contributed to his acute kidney injury. Patient was switched over to intravenous Zyvox, Zosyn and Levaquin initially to treat his pneumonia. As his symptoms improved, these were de-escalated. Patient is now doing much better. He did undergo upper GI endoscopy and colonoscopy yesterday which showed internal hemorrhoids. Patient also has a right upper extremity DVT but given his anemia and possible bleed from internal hemorrhoids, oncology hematology was consulted and they do not recommend any anticoagulation for now. They will evaluate the patient later in clinic. Patient has been on PPI and his hemoglobin level this afternoon was 10. He is stable to be discharged home. His renal function is improving and he will follow up with nephrology as outpatient for further management. Discharge discussed with: patient, family - Time Spent with Patient Total time spent providing and/or coordinating discharge services: Greater than 30 minutes (45 min) - Discharge Medications Prescriptions: Ferrous Sulfate 325 mg PO BIDWM #60 tablet levoFLOXacin [Levofloxacin] 500 mg PO Q48H #5 tablet Omeprazole [PriLOSEC] 40 mg PO DAILY #30 cap Home Medications: Allopurinol [Zyloprim 100 MG] 300 mg PO DAILY 10/28/16 [History] Aspirin [Lo-Dose Aspirin EC] 81 mg PO DAILY 10/28/16 [History] Atorvastatin [Lipitor] 40 mg PO HS 10/28/16 [History] Diltiazem HCl [Diltiazem 24Hr Cd] 120 mg PO DAILY 10/28/16 [History] Gemfibrozil [Lopid] 600 mg PO BIDWM 10/28/16 [History] Mycophenolate Sodium [Myfortic] 720 mg PO BID 10/28/16 [History] PredniSONE [Franky] 5 mg PO DAILY 10/28/16 [History] Ranitidine HCl [Acid Windows Security Analyst] 150 mg PO DAILY 10/28/16 [History] Tacrolimus [Prograf] 1 mg PO QAM 10/28/16 [History] Calcitriol [Rocaltrol] 0.25 mcg PO DAILY 04/06/18 [History] Carvedilol 12.5 mg PO BID 04/06/18 [History] Ergocalciferol (VITAMIN D2) [Vitamin D2] 50,000 unit PO 2XW 04/06/18 [History] Sodium Bicarbonate 1,300 mg PO BID 04/06/18 [History] Tacrolimus [Prograf] 0.5 mg PO HS 04/06/18 [History] Losartan [Cozaar] 100 mg PO DAILY 04/07/18 [History] Ferrous Sulfate 325 mg PO BIDWM #60 tablet 04/09/18 [Rx] Omeprazole [PriLOSEC] 40 mg PO DAILY #30 cap 04/09/18 [Rx] levoFLOXacin [Levofloxacin] 500 mg PO Q48H #5 tablet 04/09/18 [Rx] Allergies/Adverse Reactions: Allergy/AdvReac Type Severity Reaction Status Date / Time azithromycin [From Zithromax] AdvReac kidney Verified 04/06/18 15:02 transplant cephalexin [From Keflex] AdvReac transplant Verified 04/06/18 15:02 Penicillins AdvReac kidney Verified 04/06/18 15:02 transplant Date of admission: 04/06/18 20:53 Primary care physician: Felipe Workman MD Consults: 04/06/18 16:30 Consult to Nephrology [CONS] Stat Consulting Provider: Kidney Chloe/WILDER/DENIZ/JEAN PIERRE Reason for Consult: Kidney transplant patient with pneumonia Time Notified: 16:31 Call Completed: Yes 04/07/18 07:49 Consult to Gastroenterology [CONS] Routine Consulting Provider: [facility] [place] Reason for Consult: anemia r/o GI bleed Call Completed: No 04/07/18 09:41 Consult to Oncology [CONS] Routine Consulting Provider: On[facility] [place] Reason for Consult: upper extremity DVT and GI bleed Call Completed: Yes Discharging clinician: Yvette Chicas Anticipated date of discharge: 04/09/18 - Constitutional Vitals: Temp Pulse Resp BP Pulse Ox 98.9 F 75 16 127/74 96 04/09/18 12:51 04/09/18 12:51 04/09/18 12:51 04/09/18 12:51 04/09/18 12:51 General appearance: Present: A&O X 3, morbidly obese, no acute distress, answers questions appropriately Exam: . - Respiratory Respiratory exam: Present: CTAB. Absent: accessory muscle use, rales, rhonchi, wheezes - Cardiovascular Cardiovascular exam: Present: RRR, +S1, +S2. Absent: diastolic murmur, gallop, rubs, systolic murmur - GI/Abdominal GI/Abdominal exam: Present: normal bowel sounds, soft, no peritoneal signs. Absent: distended, tenderness - Extremities Exam Extremities exam: Present: warm, radial pulses palpable and symmetrical. Absent: calf tenderness, cyanotic, pedal edema - Patient Status Disposition: Home, Self-Care Condition: Good Functional capacity at discharge: independent ambulation Overall status at discharge: patient is progressing back to baseline - Ambulatory Orders Ambulatory Orders: EV venous imaging UE RT Time Frame: 04/30/18, Facility: [facility], Location: Cardiopulmonary Svc Basic Metabolic Panel [CHEM] Time Frame: 3 Days, Facility: [facility], Location: [facility] Complete Blood Count [HEME] Time Frame: 3 Days, Facility: [facility], Location: [facility] - Discharge Instructions Follow Up With: Felipe Workman MD [Primary Care Provider] - (in 1-2 weeks) Onur Mcclelland MD [Partnered Physician] - (1-2 weeks) Feng Estevez MD [Partnered Physician] - (in 3-4 weeks) Karen Lewis MD [Partnered Physician] - (in 1-2 weeks) - Diet and Activity Activity: increase activity as tolerated Diet: low fat, low cholesterol, low salt diet - VTE Deep Vein Thrombosis/Pulmonary Embolism Present on Admission: No
== END 2018-04-09 17:42 | disposition home or self-care (01) | DRG 871 ==
LOC: 2ANU 14:48 → EMEROOARM 14:48 → 2ANU 19:58
PROVIDERS: ADMIT Internal Medicine; ATTEND Internal Medicine
PROC: ENDOEBX (2018-04-08 13:00)

== ENCOUNTER 2018-10-13 12:29 | Inpatient (IN) ==
[2018-10-13 13:17] LABS: Basophils % 0.2 %; Eosinophils # 0.2 K/mcL (0.0-0.6); Eosinophils % 1.7 %; Immature Granulocytes % 2.4 % (0-4); Lymphocytes # 0.7 K/mcL (0.6-4.6); Lymphocytes % 6.4 %; Mean Corpuscular HGB Conc 29.2 g/dL (31.6-35.5); Mean Corpuscular Hemoglobin 28.3 pg (28.0-33.3); Mean Corpuscular Volume 97.2 fL (83.0-100.0); Mean Platelet Volume 11.1 fL (9.4-12.4); Monocytes # 0.5 K/mcL (0.0-1.3); Neutrophils # 8.7 K/mcL (1.6-8.9); Platelet Count 201 K/mcL (140-400); Red Blood Count 2.47 M/mcL (4.19-5.50); Red Cell Distribution Width 18.7 % (11.5-14.5); Segmented Neutrophils % 84.3 %; White Blood Count 10.3 K/mcL (4.3-11.1)
[2018-10-13 13:34] LABS: Calcium 8.8 mg/dL (8.6-10.3); Potassium 4.7 mEq/L (3.5-5.1); Troponin I 0.03 ng/mL (< 0.04)
[2018-10-13] MEDS ORDERED: Furosemide 40 MG/4 ML VIAL IVP ONE (15:07)
[2018-10-13] MEDS ORDERED: *HR* Promethazine 25 MG/ML VIAL IVP PRN (16:14)
[2018-10-13] MEDS ORDERED: Acetaminophen 325 MG TABLET PO PRN (16:14)
[2018-10-13] MEDS ORDERED: Naloxone 0.4 MG/ML INJ IVP PRN (16:14)
[2018-10-13] MEDS ORDERED: *HR* OxyCODONE Immed Rel 5 MG TABLET PO PRN (16:14)
[2018-10-13] MEDS ORDERED: Ondansetron ODT 4 MG TAB.RAPDIS SL PRN (16:14)
[2018-10-13 17:55] LABS: Troponin I 0.03 ng/mL (< 0.04)
[2018-10-13 18:52] LABS: Bilirubin,Urine Negative (Negative); Blood,Urine Negative (Negative); Clarity,Urine Clear (Clear); Color,Urine Yellow (Yellow); Glucose,Urine (UA) Normal (Normal); Ketones,Urine Negative (Negative); Leukocyte Esterase,Urine Negative (Negative); Nitrite,Urine Negative (Negative); PH,Urine 5.5 pH Units (5.0-8.0); Protein,Urine 100 mg/dL (Neg-Trace); Specific Gravity,Urine 1.015 (1.010-1.025); Urobilinogen,Urine Normal (Normal)
[2018-10-13 18:54] LABS: Bacteria,Urine None Seen per hpf (None-Few); Hyaline Casts,Urine None Seen per lpf (None-Few); Squamous Epithelial Cell,Urine Moderate per lpf (None-Few)
[2018-10-13] MEDS ORDERED: *HR* LORazepam 0.5 MG TABLET PO ONE (21:25)
[2018-10-13] MEDS ORDERED: Furosemide 40 MG/4 ML VIAL IVP SCH (23:00)
[2018-10-13 23:19] LABS: Basophils % 0.2 %; Eosinophils # 0.1 K/mcL (0.0-0.6); Eosinophils % 1.4 %; Hematocrit 23.5 % (37.5-50.1); Hemoglobin 7.2 g/dL (12.9-16.9); Immature Granulocytes % 2.2 % (0-4); Mean Corpuscular HGB Conc 30.6 g/dL (31.6-35.5); Mean Corpuscular Hemoglobin 28.7 pg (28.0-33.3); Mean Corpuscular Volume 93.6 fL (83.0-100.0); Mean Platelet Volume 10.4 fL (9.4-12.4); Monocytes # 0.6 K/mcL (0.0-1.3); Monocytes % 6.2 %; Neutrophils # 7.6 K/mcL (1.6-8.9); Platelet Count 180 K/mcL (140-400); Red Blood Count 2.51 M/mcL (4.19-5.50); Red Cell Distribution Width 18.6 % (11.5-14.5); White Blood Count 9.5 K/mcL (4.3-11.1)
[2018-10-14 05:14] LABS: Basophils % 0.2 %; Eosinophils # 0.2 K/mcL (0.0-0.6); Eosinophils % 2.2 %; Hematocrit 22.6 % (37.5-50.1); Hemoglobin 6.7 g/dL (12.9-16.9); Immature Granulocytes % 1.9 % (0-4); Lymphocytes # 1.3 K/mcL (0.6-4.6); Lymphocytes % 14.3 %; Mean Corpuscular HGB Conc 29.6 g/dL (31.6-35.5); Mean Corpuscular Hemoglobin 27.9 pg (28.0-33.3); Mean Corpuscular Volume 94.2 fL (83.0-100.0); Mean Platelet Volume 10.7 fL (9.4-12.4); Monocytes # 0.7 K/mcL (0.0-1.3); Monocytes % 7.8 %; Neutrophils # 6.8 K/mcL (1.6-8.9); Platelet Count 176 K/mcL (140-400); Red Cell Distribution Width 18.3 % (11.5-14.5); Segmented Neutrophils % 73.6 %; White Blood Count 9.3 K/mcL (4.3-11.1)
[2018-10-14 05:29] LABS: Calcium 8.6 mg/dL (8.6-10.3); Potassium 4.4 mEq/L (3.5-5.1)
[2018-10-14] MEDS: Furosemide 40 MG/4 ML VIAL IVP SCH ×2 (06:20→16:11)
[2018-10-14] MEDS ORDERED: Furosemide 40 MG/4 ML VIAL IVP SCH (07:00)
[2018-10-14] MEDS ORDERED: 0.9 % Sodium Chloride 250 ML ONE (10:53)
[2018-10-14] MEDS: amLODIPine 5 MG TABLET PO SCH (12:33)
[2018-10-14] MEDS: Pantoprazole 40 MG VIAL IVP SCH (12:33)
[2018-10-14] MEDS: carvediloL 6.25 MG TABLET PO SCH (16:11)
[2018-10-14 16:31] LABS: Basophils % 0.2 %; Eosinophils # 0.2 K/mcL (0.0-0.6); Eosinophils % 2.5 %; Hematocrit 24.1 % (37.5-50.1); Hemoglobin 7.3 g/dL (12.9-16.9); Immature Granulocytes % 1.9 % (0-4); Lymphocytes # 1.3 K/mcL (0.6-4.6); Lymphocytes % 14.9 %; Mean Corpuscular HGB Conc 30.3 g/dL (31.6-35.5); Mean Corpuscular Hemoglobin 28.7 pg (28.0-33.3); Mean Corpuscular Volume 94.9 fL (83.0-100.0); Mean Platelet Volume 9.8 fL (9.4-12.4); Monocytes # 0.7 K/mcL (0.0-1.3); Monocytes % 7.8 %; Neutrophils # 6.1 K/mcL (1.6-8.9); Platelet Count 153 K/mcL (140-400); Red Blood Count 2.54 M/mcL (4.19-5.50); Red Cell Distribution Width 18.5 % (11.5-14.5); Segmented Neutrophils % 72.7 %; White Blood Count 8.5 K/mcL (4.3-11.1)
[2018-10-14] MEDS ORDERED: SODIUM CHLORIDE/NAHCO3/KCL/PEG 4,000 ML SOLN.RECON PO ONE (17:00)
[2018-10-15 04:07] LABS: Basophils % 0.3 %; Eosinophils # 0.3 K/mcL (0.0-0.6); Eosinophils % 2.5 %; Hematocrit 27.7 % (37.5-50.1); Hemoglobin 8.3 g/dL (12.9-16.9); Lymphocytes # 1.4 K/mcL (0.6-4.6); Lymphocytes % 13.9 %; Mean Corpuscular Hemoglobin 27.8 pg (28.0-33.3); Mean Corpuscular Volume 92.6 fL (83.0-100.0); Mean Platelet Volume 9.8 fL (9.4-12.4); Monocytes # 0.7 K/mcL (0.0-1.3); Monocytes % 6.8 %; Neutrophils # 7.5 K/mcL (1.6-8.9); Platelet Count 188 K/mcL (140-400); Red Blood Count 2.99 M/mcL (4.19-5.50); Red Cell Distribution Width 18.6 % (11.5-14.5); Segmented Neutrophils % 74.5 %
[2018-10-15 04:24] LABS: Magnesium 1.2 mg/dL (1.6-2.6); Phosphorous 3.2 mg/dL (2.7-4.5); Potassium 4.1 mEq/L (3.5-5.1)
[2018-10-15] MEDS: Furosemide 40 MG/4 ML VIAL IVP SCH (08:53)
[2018-10-15] MEDS: Pantoprazole 40 MG VIAL IVP SCH (08:53)
[2018-10-15] MEDS: carvediloL 6.25 MG TABLET PO SCH ×2 (08:53→17:19)
[2018-10-15] MEDS: DilTIAZem CD (24hr) 120 MG CAP.ER.24H PO SCH (08:53)
[2018-10-15] MEDS: predniSONE 5 MG TABLET PO SCH (08:53)
[2018-10-15] MEDS: amLODIPine 5 MG TABLET PO SCH (08:54)
[2018-10-15] MEDS ORDERED: *HR* Propofol 200 MG/20 ML VIAL IVP ONE ×2 (13:31→13:40)
[2018-10-15] MEDS ORDERED: Lidocaine -MPF 2% 2 ML VIAL ONE (13:31)
[2018-10-15] MEDS ORDERED: Propofol 500 MG/50 ML INFUS..BTL ONE (13:31)
[2018-10-15] MEDS ORDERED: 0.9 % Sodium Chloride 500 ML IVC SCH (13:45)
[2018-10-15] MEDS ORDERED: D5% in Lactated Ringers 1,000 ML IVC ONE (14:40)
[2018-10-15] MEDS: Furosemide 40 MG TABLET PO SCH (17:19)
[2018-10-15] MEDS: Mycophenolate Sodium (DR) 180 MG TABLET.DR PO SCH (20:28)
[2018-10-16 02:33] LABS: Basophils % 0.2 %; Eosinophils # 0.2 K/mcL (0.0-0.6); Eosinophils % 2.1 %; Hematocrit 24.5 % (37.5-50.1); Hemoglobin 7.4 g/dL (12.9-16.9); Immature Granulocytes % 2.2 % (0-4); Lymphocytes # 1.2 K/mcL (0.6-4.6); Lymphocytes % 13.8 %; Mean Corpuscular HGB Conc 30.2 g/dL (31.6-35.5); Mean Corpuscular Hemoglobin 27.9 pg (28.0-33.3); Mean Corpuscular Volume 92.5 fL (83.0-100.0); Mean Platelet Volume 10.2 fL (9.4-12.4); Monocytes # 0.7 K/mcL (0.0-1.3); Monocytes % 8.1 %; Neutrophils # 6.3 K/mcL (1.6-8.9); Platelet Count 167 K/mcL (140-400); Red Blood Count 2.65 M/mcL (4.19-5.50); Red Cell Distribution Width 18.1 % (11.5-14.5); Segmented Neutrophils % 73.6 %; White Blood Count 8.6 K/mcL (4.3-11.1)
[2018-10-16 02:51] LABS: Calcium 8.5 mg/dL (8.6-10.3); Magnesium 1.4 mg/dL (1.6-2.6)
[2018-10-16] MEDS ORDERED: (Tacrolimus [Prograf] 0.5 MG) PO SCH (09:00)
[2018-10-16] MEDS ORDERED: (Tacrolimus [Prograf] 1 MG) PO SCH (09:00)
[2018-10-16] MEDS: Mycophenolate Sodium (DR) 180 MG TABLET.DR PO SCH (09:48)
[2018-10-16] MEDS: predniSONE 5 MG TABLET PO SCH (09:48)
[2018-10-16] MEDS: DilTIAZem CD (24hr) 120 MG CAP.ER.24H PO SCH (09:49)
[2018-10-16] MEDS: Pantoprazole 40 MG VIAL IVP SCH (09:49)
[2018-10-16] MEDS: amLODIPine 5 MG TABLET PO SCH (09:49)
[2018-10-16] MEDS: carvediloL 6.25 MG TABLET PO SCH (09:49)
[2018-10-16] MEDS: Furosemide 40 MG TABLET PO SCH (09:49)
[2018-10-16 10:40] LABS: Hematocrit 24.5 % (37.5-50.1); Hemoglobin 7.4 g/dL (12.9-16.9)
[2018-10-16 11:45] VITALS: BP 161/89
[2018-10-16] MEDS ORDERED: TACROLIMUS 0.5 MG PO SCH (18:00)
[2018-10-17] MEDS ORDERED: TACROLIMUS 0.5 MG PO SCH (09:00)
== END 2018-10-16 12:56 | disposition home or self-care (01) | DRG 291 ==
LOC: SUATTDRO → EMEROOARM 12:29 → 2ANU 12:29 → SUATTDRO 18:47 → 2ANU 20:00
PROVIDERS: ADMIT Internal Medicine; ATTEND Internal Medicine
PROC: ENDOEBX (2018-10-15 13:55)

== ENCOUNTER 2018-11-21 06:27 | Inpatient (IN) ==
[2018-11-21] MEDS ORDERED: Ipratropium/Albuterol Neb 3 ML IH ONE (07:06)
[2018-11-21 07:18] LABS: Basophils % 0.1 %; Eosinophils # 0.2 K/mcL (0.0-0.6); Eosinophils % 2.4 %; Hematocrit 24.8 % (37.5-50.1); Hemoglobin 7.6 g/dL (12.9-16.9); Immature Granulocytes % 1.6 % (0-4); Lymphocytes % 14.9 %; Mean Corpuscular HGB Conc 30.6 g/dL (31.6-35.5); Mean Corpuscular Hemoglobin 28.5 pg (28.0-33.3); Mean Corpuscular Volume 92.9 fL (83.0-100.0); Mean Platelet Volume 10.5 fL (9.4-12.4); Monocytes # 0.8 K/mcL (0.0-1.3); Monocytes % 12.1 %; Neutrophils # 4.7 K/mcL (1.6-8.9); Platelet Count 147 K/mcL (140-400); Red Blood Count 2.67 M/mcL (4.19-5.50); Red Cell Distribution Width 17.2 % (11.5-14.5); Segmented Neutrophils % 68.9 %; White Blood Count 6.8 K/mcL (4.3-11.1)
[2018-11-21 08:00] LABS: Bilirubin,Urine Negative (Negative); Blood,Urine Negative (Negative); Clarity,Urine Clear (Clear); Color,Urine Yellow (Yellow); Glucose,Urine (UA) Normal (Normal); Ketones,Urine Negative (Negative); Leukocyte Esterase,Urine Negative (Negative); Nitrite,Urine Negative (Negative); PH,Urine 5.5 pH Units (5.0-8.0); Protein,Urine 100 mg/dL (Neg-Trace); Urobilinogen,Urine Normal (Normal)
[2018-11-21 08:02] LABS: Bacteria,Urine None Seen per hpf (None-Few); Hyaline Casts,Urine None Seen per lpf (None-Few); RBC,Urine 0-3 per hpf (0-3); Squamous Epithelial Cell,Urine Few per lpf (None-Few); WBC,Urine 0-3 per hpf (0-3)
[2018-11-21] MEDS ORDERED: Furosemide 40 MG/4 ML VIAL IVP ONE (08:06)
[2018-11-21 08:49] LABS: Calcium 8.8 mg/dL (8.6-10.3); Potassium 4.3 mEq/L (3.5-5.1); Troponin I 0.03 ng/mL (< 0.04)
[2018-11-21] MEDS ORDERED: Naloxone 0.4 MG/ML INJ IVP PRN (10:40)
[2018-11-21] MEDS ORDERED: *HR* HYDROcodone/Acet 5/325 mg TABLET PO PRN (10:40)
[2018-11-21] MEDS ORDERED: Acetaminophen 325 MG TABLET PO PRN (10:40)
[2018-11-21] MEDS: Furosemide 40 MG/4 ML VIAL IVP SCH (17:33)
[2018-11-21] MEDS: carvediloL 6.25 MG TABLET PO SCH (17:33)
[2018-11-21] MEDS: *HR* Heparin 5,000 UNIT/ML VIAL SQ SCH (17:48)
[2018-11-21] MEDS: Aspirin Enteric Coated 81 MG Tablet PO SCH (20:02)
[2018-11-21] MEDS: Mycophenolate Sodium (DR) 180 MG TABLET.DR PO SCH (20:02)
[2018-11-21] MEDS: metOLazone 5 MG TABLET PO SCH ×2 (20:02→22:20)
[2018-11-21] MEDS: TACROLIMUS 0.5 MG PO SCH (22:20)
[2018-11-22 01:30] LABS: Basophils % 0.4 %; Eosinophils # 0.1 K/mcL (0.0-0.6); Eosinophils % 2.5 %; Hematocrit 24.3 % (37.5-50.1); Hemoglobin 7.3 g/dL (12.9-16.9); Immature Granulocytes % 1.3 % (0-4); Lymphocytes # 1.1 K/mcL (0.6-4.6); Lymphocytes % 20.2 %; Mean Corpuscular Hemoglobin 28.2 pg (28.0-33.3); Mean Corpuscular Volume 93.8 fL (83.0-100.0); Mean Platelet Volume 11.2 fL (9.4-12.4); Monocytes # 0.7 K/mcL (0.0-1.3); Monocytes % 12.2 %; Neutrophils # 3.5 K/mcL (1.6-8.9); Platelet Count 137 K/mcL (140-400); Red Blood Count 2.59 M/mcL (4.19-5.50); Red Cell Distribution Width 17.5 % (11.5-14.5); Segmented Neutrophils % 63.4 %; White Blood Count 5.5 K/mcL (4.3-11.1)
[2018-11-22 01:49] LABS: Calcium 8.7 mg/dL (8.6-10.3); Magnesium 1.4 mg/dL (1.6-2.6); Potassium 4.6 mEq/L (3.5-5.1)
[2018-11-22] MEDS: *HR* Heparin 5,000 UNIT/ML VIAL SQ SCH ×2 (06:18→15:56)
[2018-11-22] MEDS: Mycophenolate Sodium (DR) 180 MG TABLET.DR PO SCH ×2 (08:06→21:19)
[2018-11-22] MEDS: carvediloL 6.25 MG TABLET PO SCH ×2 (08:06→15:50)
[2018-11-22] MEDS: DilTIAZem CD (24hr) 120 MG CAP.ER.24H PO SCH (08:06)
[2018-11-22] MEDS: metOLazone 5 MG TABLET PO SCH ×2 (08:07→21:18)
[2018-11-22] MEDS: predniSONE 5 MG TABLET PO SCH (08:07)
[2018-11-22] MEDS: Famotidine 20 MG TABLET PO SCH (08:07)
[2018-11-22] MEDS: Furosemide 40 MG/4 ML VIAL IVP SCH ×2 (08:08→15:50)
[2018-11-22] MEDS: Sucralfate 1 GM TABLET PO SCH ×3 (11:54→21:18)
[2018-11-22] MEDS: Tacrolimus [Prograf] 1 MG PO SCH (14:10)
[2018-11-22] MEDS ORDERED: Furosemide 40 MG TABLET PO SCH (21:00)
[2018-11-22] MEDS: Aspirin Enteric Coated 81 MG Tablet PO SCH (21:18)
[2018-11-22] MEDS: TACROLIMUS 0.5 MG PO SCH (21:19)
[2018-11-23 05:14] LABS: Hematocrit 25.8 % (37.5-50.1); Hemoglobin 7.9 g/dL (12.9-16.9); Mean Corpuscular HGB Conc 30.6 g/dL (31.6-35.5); Mean Corpuscular Volume 94.9 fL (83.0-100.0); Mean Platelet Volume 10.7 fL (9.4-12.4); Platelet Count 139 K/mcL (140-400); Red Blood Count 2.72 M/mcL (4.19-5.50); Red Cell Distribution Width 17.2 % (11.5-14.5); White Blood Count 6.3 K/mcL (4.3-11.1)
[2018-11-23 05:33] LABS: Calcium 8.9 mg/dL (8.6-10.3); Potassium 4.4 mEq/L (3.5-5.1)
[2018-11-23] MEDS: *HR* Heparin 5,000 UNIT/ML VIAL SQ SCH ×2 (06:16→16:48)
[2018-11-23] MEDS: Famotidine 20 MG TABLET PO SCH (06:16)
[2018-11-23] MEDS: Sucralfate 1 GM TABLET PO SCH ×4 (06:16→21:04)
[2018-11-23] MEDS ORDERED: DilTIAZem CD (24hr) 120 MG CAP.ER.24H PO SCH (09:00)
[2018-11-23] MEDS ORDERED: Ergocalciferol (VIT D2) 50,000 UNIT (1.25MG) CAP PO SCH (09:00)
[2018-11-23] MEDS: Loratadine 10 MG TABLET PO SCH (09:54)
[2018-11-23] MEDS: Furosemide 40 MG/4 ML VIAL IVP SCH ×2 (09:54→16:48)
[2018-11-23] MEDS: Vitamin B Complex/Vit C/Vit E 1 EACH TABLET PO SCH (09:54)
[2018-11-23] MEDS: carvediloL 6.25 MG TABLET PO SCH ×2 (09:54→16:48)
[2018-11-23] MEDS: DilTIAZem CD (24hr) 120 MG CAP.ER.24H PO SCH (09:55)
[2018-11-23] MEDS: predniSONE 5 MG TABLET PO SCH (09:56)
[2018-11-23] MEDS: Mycophenolate Sodium (DR) 180 MG TABLET.DR PO SCH ×2 (09:56→21:03)
[2018-11-23] MEDS: metOLazone 5 MG TABLET PO SCH ×2 (09:56→21:03)
[2018-11-23] MEDS: amLODIPine 5 MG TABLET PO SCH (09:57)
[2018-11-23] MEDS: Tacrolimus [Prograf] 1 MG PO SCH (09:58)
[2018-11-23] MEDS ORDERED: Darbepoetin 100 MCG/0.5 ML SYRINGE SQ SCH ×2 (17:30→18:15)
[2018-11-23] MEDS: Aspirin Enteric Coated 81 MG Tablet PO SCH (21:03)
[2018-11-23] MEDS: TACROLIMUS 0.5 MG PO SCH (21:04)
[2018-11-24 04:06] VITALS: BP 140/71
[2018-11-24 04:57] LABS: Hemoglobin 8.1 g/dL (12.9-16.9); Mean Corpuscular Hemoglobin 28.1 pg (28.0-33.3); Mean Corpuscular Volume 93.8 fL (83.0-100.0); Mean Platelet Volume 10.6 fL (9.4-12.4); Platelet Count 146 K/mcL (140-400); Red Blood Count 2.88 M/mcL (4.19-5.50); White Blood Count 5.8 K/mcL (4.3-11.1)
[2018-11-24 05:15] LABS: Calcium 9.1 mg/dL (8.6-10.3); Potassium 4.6 mEq/L (3.5-5.1)
[2018-11-24] MEDS: Famotidine 20 MG TABLET PO SCH (06:09)
[2018-11-24] MEDS: Sucralfate 1 GM TABLET PO SCH (06:09)
[2018-11-24] MEDS: *HR* Heparin 5,000 UNIT/ML VIAL SQ SCH (06:10)
[2018-11-24] MEDS: Loratadine 10 MG TABLET PO SCH (07:28)
[2018-11-24] MEDS: Mycophenolate Sodium (DR) 180 MG TABLET.DR PO SCH (07:28)
[2018-11-24] MEDS: Vitamin B Complex/Vit C/Vit E 1 EACH TABLET PO SCH (07:29)
[2018-11-24] MEDS: amLODIPine 5 MG TABLET PO SCH (07:29)
[2018-11-24] MEDS: DilTIAZem CD (24hr) 120 MG CAP.ER.24H PO SCH (07:29)
[2018-11-24] MEDS: predniSONE 5 MG TABLET PO SCH (07:29)
[2018-11-24] MEDS: carvediloL 6.25 MG TABLET PO SCH (07:29)
[2018-11-24] MEDS ORDERED: metOLazone 5 MG TABLET PO SCH (07:30)
[2018-11-24] MEDS: Furosemide 40 MG/4 ML VIAL IVP SCH (08:28)
[2018-11-24] MEDS: Tacrolimus [Prograf] 1 MG PO SCH (08:28)
== END 2018-11-24 11:15 | disposition home or self-care (01) | DRG 291 ==
LOC: EMEROOARM 06:27 → 3BNU 06:27
PROVIDERS: ADMIT Internal Medicine Nephrology; ATTEND Student in an Organized Health Care Education/Training Program

== ENCOUNTER 2019-01-02 18:07 | Observation (INO) ==
[2019-01-02 19:20] LABS: Eosinophils % 0.7 %; Hematocrit 24.1 % (37.5-50.1); Hemoglobin 7.3 g/dL (12.9-16.9); Immature Granulocytes % 3.5 % (0-4); Lymphocytes # 0.3 K/mcL (0.6-4.6); Mean Corpuscular HGB Conc 30.3 g/dL (31.6-35.5); Mean Corpuscular Volume 95.6 fL (83.0-100.0); Mean Platelet Volume 10.5 fL (9.4-12.4); Monocytes # 0.1 K/mcL (0.0-1.3); Monocytes % 2.2 %; Neutrophils # 5.1 K/mcL (1.6-8.9); Platelet Count 199 K/mcL (140-400); Red Blood Count 2.52 M/mcL (4.19-5.50); Red Cell Distribution Width 16.5 % (11.5-14.5); Segmented Neutrophils % 88.6 %; White Blood Count 5.8 K/mcL (4.3-11.1)
[2019-01-02 19:27] LABS: Calcium 8.8 mg/dL (8.6-10.3); Potassium 5.1 mEq/L (3.5-5.1)
[2019-01-02] MEDS ORDERED: Naloxone 0.4 MG/ML INJ IVP PRN (23:03)
[2019-01-02] MEDS: Mycophenolate Sodium (DR) 180 MG TABLET.DR PO SCH (23:48)
[2019-01-03 05:10] LABS: Hematocrit 21.4 % (37.5-50.1); Hemoglobin 6.4 g/dL (12.9-16.9)
[2019-01-03] MEDS: amLODIPine 5 MG TABLET PO SCH (09:19)
[2019-01-03] MEDS: Diltiazem CD (24hr) 120 MG CAPSULE PO SCH (09:19)
[2019-01-03] MEDS: Furosemide 40 MG TABLET PO SCH (09:20)
[2019-01-03] MEDS: Famotidine 20 MG TABLET PO SCH (09:20)
[2019-01-03] MEDS: predniSONE 5 MG TABLET PO SCH (09:20)
[2019-01-03] MEDS: Mycophenolate Sodium (DR) 180 MG TABLET.DR PO SCH ×2 (09:20→20:56)
[2019-01-03 11:05] LABS: Hematocrit 21.1 % (37.5-50.1); Hemoglobin 6.4 g/dL (12.9-16.9)
[2019-01-03] MEDS ORDERED: 0.9 % Sodium Chloride Mini Bag 100 ML ONE (13:41)
[2019-01-03 18:15] LABS: Hematocrit 23.3 % (37.5-50.1); Hemoglobin 7.1 g/dL (12.9-16.9)
[2019-01-03] MEDS: Furosemide 20 MG TABLET PO SCH (20:55)
[2019-01-03] MEDS: Sucralfate 1 GM TABLET PO SCH (20:55)
[2019-01-03] MEDS: TACROLIMUS 0.5 MG PO SCH (20:56)
[2019-01-04 00:30] LABS: Hematocrit 22.5 % (37.5-50.1)
[2019-01-04 06:19] LABS: Basophils % 0.3 %; Eosinophils # 0.2 K/mcL (0.0-0.6); Eosinophils % 3.3 %; Hematocrit 22.6 % (37.5-50.1); Hemoglobin 6.9 g/dL (12.9-16.9); Immature Granulocytes % 1.9 % (0-4); Mean Corpuscular HGB Conc 30.5 g/dL (31.6-35.5); Mean Corpuscular Hemoglobin 28.8 pg (28.0-33.3); Mean Corpuscular Volume 94.2 fL (83.0-100.0); Mean Platelet Volume 10.9 fL (9.4-12.4); Monocytes # 0.8 K/mcL (0.0-1.3); Monocytes % 13.1 %; Neutrophils # 4.2 K/mcL (1.6-8.9); Platelet Count 179 K/mcL (140-400); Red Cell Distribution Width 16.3 % (11.5-14.5); Segmented Neutrophils % 66.4 %; White Blood Count 6.4 K/mcL (4.3-11.1)
[2019-01-04] MEDS ORDERED: Lidocaine -MPF 2% 2 ML VIAL ONE (07:34)
[2019-01-04] MEDS ORDERED: *HR* Propofol 200 MG/20 ML VIAL IVP ONE ×2 (08:14→08:30)
[2019-01-04] MEDS ORDERED: *HR* Succinylcholine 200 MG/10 ML VIAL IVP ONE (08:16)
[2019-01-04] MEDS ORDERED: 0.9 % Sodium Chloride 500 ML ONE (10:03)
[2019-01-04] MEDS: Famotidine 20 MG TABLET PO SCH (10:42)
[2019-01-04] MEDS: Furosemide 40 MG TABLET PO SCH (10:42)
[2019-01-04] MEDS: amLODIPine 5 MG TABLET PO SCH (10:42)
[2019-01-04] MEDS: predniSONE 5 MG TABLET PO SCH (10:42)
[2019-01-04] MEDS: Diltiazem CD (24hr) 120 MG CAPSULE PO SCH (10:42)
[2019-01-04] MEDS: Sucralfate 1 GM TABLET PO SCH ×2 (10:43→19:58)
[2019-01-04] MEDS: Mycophenolate Sodium (DR) 180 MG TABLET.DR PO SCH ×2 (10:43→19:58)
[2019-01-04] MEDS: TACROLIMUS 0.5 MG PO SCH ×2 (10:44→19:59)
[2019-01-04] MEDS ORDERED: Ergocalciferol (VIT D2) 50,000 UNIT (1.25MG) CAP PO SCH (11:27)
[2019-01-04 11:56] LABS: Calcium 8.3 mg/dL (8.6-10.3); Potassium 4.7 mEq/L (3.5-5.1)
[2019-01-04 14:11] LABS: Hematocrit 24.7 % (37.5-50.1); Hemoglobin 7.6 g/dL (12.9-16.9)
[2019-01-04] MEDS: Furosemide 20 MG TABLET PO SCH (19:58)
[2019-01-04 20:24] LABS: Hematocrit 25.4 % (37.5-50.1); Hemoglobin 7.8 g/dL (12.9-16.9)
[2019-01-05 01:27] LABS: Hematocrit 24.7 % (37.5-50.1); Hemoglobin 7.8 g/dL (12.9-16.9)
[2019-01-05 07:35] VITALS: BP 159/68
[2019-01-05] MEDS ORDERED: Sucralfate 1 GM TABLET PO SCH (07:46)
[2019-01-05 09:36] LABS: Calcium 8.7 mg/dL (8.6-10.3); Potassium 4.4 mEq/L (3.5-5.1)
[2019-01-05] MEDS: Diltiazem CD (24hr) 120 MG CAPSULE PO SCH (09:36)
[2019-01-05] MEDS: Furosemide 40 MG TABLET PO SCH (09:36)
[2019-01-05] MEDS: amLODIPine 5 MG TABLET PO SCH (09:37)
[2019-01-05] MEDS: Mycophenolate Sodium (DR) 180 MG TABLET.DR PO SCH (09:37)
[2019-01-05] MEDS: predniSONE 5 MG TABLET PO SCH (09:37)
[2019-01-05] MEDS: Famotidine 20 MG TABLET PO SCH (09:38)
[2019-01-05] MEDS: TACROLIMUS 0.5 MG PO SCH (09:43)
[2019-01-05] MEDS ORDERED: Furosemide 20 MG TABLET PO SCH (17:00)
== END 2019-01-05 10:30 | disposition home or self-care (01) ==
LOC: 2ANU 18:07 → EMEROOARM 18:07 → SUATTDRO 21:20 → 2ANU 22:00
PROVIDERS: ADMIT Family Medicine; ATTEND Internal Medicine

== ENCOUNTER 2019-05-09 01:30 | Inpatient (IN) ==
[2019-05-09 03:58] LABS: Basophils % 0.5 %; Eosinophils # 0.2 K/mcL (0.0-0.6); Eosinophils % 2.7 %; Hematocrit 20.1 % (37.5-50.1); Hemoglobin 6.2 g/dL (12.9-16.9); Lymphocytes # 1.3 K/mcL (0.6-4.6); Lymphocytes % 21.5 %; Mean Corpuscular HGB Conc 30.8 g/dL (31.6-35.5); Mean Corpuscular Hemoglobin 28.3 pg (28.0-33.3); Mean Corpuscular Volume 91.8 fL (83.0-100.0); Mean Platelet Volume 11.2 fL (9.4-12.4); Monocytes # 0.5 K/mcL (0.0-1.3); Neutrophils # 3.8 K/mcL (1.6-8.9); Platelet Count 158 K/mcL (140-400); Red Blood Count 2.19 M/mcL (4.19-5.50); Red Cell Distribution Width 15.7 % (11.5-14.5); Segmented Neutrophils % 65.3 %; White Blood Count 5.9 K/mcL (4.3-11.1)
[2019-05-09] MEDS ORDERED: Naloxone 0.4 MG/ML INJ IVP PRN (04:04)
[2019-05-09 04:15] LABS: Albumin 4.2 g/dL (3.5-5.7); Albumin/Globulin Ratio 1.8 (1.1-2.2); Bilirubin,Total 0.4 mg/dL (0.3-1.0); Calcium 9.3 mg/dL (8.6-10.3); Globulin 2.3 g/dL (2.4-3.5); Magnesium 1.5 mg/dL (1.6-2.6); Phosphorous 4.2 mg/dL (2.7-4.5); Potassium 4.2 mEq/L (3.5-5.1); Total Protein 6.5 g/dL (6.4-8.9)
[2019-05-09] MEDS ORDERED: 0.9 % Sodium Chloride 250 ML ONE ×3 (04:57→16:16)
[2019-05-09] MEDS ORDERED: *HR* Midazolam HCl 5 MG/5 ML VIAL IVP ONE ×2 (09:38→10:17)
[2019-05-09] MEDS ORDERED: *HR* FentaNYL (PF) 100 MCG/2 ML VIAL ONE (09:38)
[2019-05-09 10:00] LABS: Basophils % 0.4 %; Eosinophils # 0.2 K/mcL (0.0-0.6); Eosinophils % 3.3 %; Hematocrit 20.5 % (37.5-50.1); Hemoglobin 6.8 g/dL (12.9-16.9); Immature Granulocytes % 1.2 % (0-4); Lymphocytes # 1.1 K/mcL (0.6-4.6); Lymphocytes % 21.5 %; Mean Corpuscular HGB Conc 33.2 g/dL (31.6-35.5); Mean Corpuscular Hemoglobin 29.6 pg (28.0-33.3); Mean Corpuscular Volume 89.1 fL (83.0-100.0); Mean Platelet Volume 10.8 fL (9.4-12.4); Monocytes # 0.5 K/mcL (0.0-1.3); Monocytes % 9.6 %; Neutrophils # 3.3 K/mcL (1.6-8.9); Platelet Count 138 K/mcL (140-400); Red Cell Distribution Width 15.5 % (11.5-14.5); White Blood Count 5.1 K/mcL (4.3-11.1)
[2019-05-09] MEDS ORDERED: *HR* FentaNYL (PF) 100 MCG/2 ML VIAL IVP ONE (10:17)
[2019-05-09] MEDS: Aspirin Enteric Coated 81 MG Tablet PO SCH ×2 (12:42→20:31)
[2019-05-09] MEDS: Mycophenolate Sodium (DR) 180 MG TABLET.DR PO SCH ×2 (12:43→20:30)
[2019-05-09] MEDS: predniSONE 5 MG TABLET PO SCH (12:43)
[2019-05-09] MEDS: amLODIPine 5 MG TABLET PO SCH (12:43)
[2019-05-09 15:27] LABS: Basophils % 0.6 %; Eosinophils # 0.2 K/mcL (0.0-0.6); Eosinophils % 3.3 %; Hematocrit 20.9 % (37.5-50.1); Hemoglobin 6.8 g/dL (12.9-16.9); Immature Granulocytes % 1.2 % (0-4); Lymphocytes # 0.9 K/mcL (0.6-4.6); Mean Corpuscular HGB Conc 32.5 g/dL (31.6-35.5); Mean Corpuscular Hemoglobin 29.1 pg (28.0-33.3); Mean Corpuscular Volume 89.3 fL (83.0-100.0); Mean Platelet Volume 10.7 fL (9.4-12.4); Monocytes # 0.5 K/mcL (0.0-1.3); Monocytes % 10.4 %; Neutrophils # 3.3 K/mcL (1.6-8.9); Platelet Count 139 K/mcL (140-400); Red Blood Count 2.34 M/mcL (4.19-5.50); Red Cell Distribution Width 15.6 % (11.5-14.5); Segmented Neutrophils % 66.5 %; White Blood Count 4.9 K/mcL (4.3-11.1)
[2019-05-09] MEDS: TACROLIMUS 0.5 MG PO SCH (17:40)
[2019-05-09] MEDS: carvediloL 25 MG TABLET PO SCH (17:40)
[2019-05-09] MEDS: Magnesium Oxide 400 MG TABLET PO SCH (20:31)
[2019-05-09] MEDS: Furosemide 40 MG TABLET PO SCH (20:31)
[2019-05-09 22:36] LABS: Hematocrit 22.3 % (37.5-50.1); Hemoglobin 7.4 g/dL (12.9-16.9)
[2019-05-10 05:15] LABS: Hematocrit 24.1 % (37.5-50.1); Hemoglobin 7.7 g/dL (12.9-16.9)
[2019-05-10] MEDS: Furosemide 40 MG TABLET PO SCH (07:49)
[2019-05-10] MEDS: carvediloL 25 MG TABLET PO SCH ×2 (07:49→16:44)
[2019-05-10] MEDS: Magnesium Oxide 400 MG TABLET PO SCH (07:49)
[2019-05-10] MEDS: predniSONE 5 MG TABLET PO SCH (07:49)
[2019-05-10] MEDS: amLODIPine 5 MG TABLET PO SCH (07:49)
[2019-05-10] MEDS: Mycophenolate Sodium (DR) 180 MG TABLET.DR PO SCH (07:50)
[2019-05-10] MEDS ORDERED: TACROLIMUS 0.5 MG PO SCH (09:00)
[2019-05-10] MEDS ORDERED: Ergocalciferol (VIT D2) 50,000 UNIT (1.25MG) CAP PO SCH (09:00)
[2019-05-10] MEDS ORDERED: Loratadine 10 MG TABLET PO SCH (09:00)
[2019-05-10] MEDS ORDERED: DilTIAZem CD (24hr) 120 MG CAP.ER.24H PO SCH (09:00)
[2019-05-10 09:58] LABS: Hematocrit 23.2 % (37.5-50.1); Hemoglobin 7.3 g/dL (12.9-16.9)
[2019-05-10] MEDS ORDERED: Fluticasone Propionate Nasal 50 MCG/SPRAY BOTTLE NS PRN (15:28)
[2019-05-10] MEDS ORDERED: Acetaminophen 325 MG TABLET PO PRN (15:28)
[2019-05-10 16:11] VITALS: BP 135/66
[2019-05-10] MEDS: TACROLIMUS 0.5 MG PO SCH (16:45)
== END 2019-05-10 18:54 | disposition short-term general hospital (02) | DRG 378 ==
LOC: 3BNU → SUATTDRO 02:58
PROVIDERS: ADMIT Internal Medicine; ATTEND Family Medicine

== ENCOUNTER 2019-05-19 20:07 | Observation (INO) ==
[2019-05-19 21:13] LABS: Basophils % 0.1 %; Eosinophils % 0.3 %; Hematocrit 21.7 % (37.5-50.1); Hemoglobin 6.9 g/dL (12.9-16.9); Lymphocytes # 0.3 K/mcL (0.6-4.6); Lymphocytes % 2.2 %; Mean Corpuscular HGB Conc 31.8 g/dL (31.6-35.5); Mean Corpuscular Hemoglobin 28.6 pg (28.0-33.3); Monocytes # 0.5 K/mcL (0.0-1.3); Monocytes % 4.7 %; Neutrophils # 9.7 K/mcL (1.6-8.9); Platelet Count 211 K/mcL (140-400); Red Blood Count 2.41 M/mcL (4.19-5.50); Red Cell Distribution Width 15.7 % (11.5-14.5); Segmented Neutrophils % 85.7 %; White Blood Count 11.3 K/mcL (4.3-11.1)
[2019-05-19 21:16] LABS: INR 1.8
[2019-05-19 21:18] LABS: Activated Partial Thrombo Time 37.5 Seconds (26.0-36.0)
[2019-05-19 21:36] LABS: Troponin I 0.04 ng/mL (< 0.04)
[2019-05-19 21:45] LABS: Hypochromasia Present (Not Present); Platelet Estimate Normal (Normal)
[2019-05-19 21:46] LABS: Acanthocytes 1+ (Not Present); Microcytosis Present (Not Present)
[2019-05-19 21:49] LABS: Albumin 3.4 g/dL (3.5-5.7); Albumin/Globulin Ratio 1.1 (1.1-2.2); Bilirubin,Total 0.6 mg/dL (0.3-1.0); Calcium 8.2 mg/dL (8.6-10.3); Globulin 3.1 g/dL (2.4-3.5); Potassium 4.8 mEq/L (3.5-5.1); Total Protein 6.5 g/dL (6.4-8.9)
[2019-05-19] MEDS ORDERED: Bumetanide 1 MG/4 ML VIAL IVP ONE (22:12)
[2019-05-20] MEDS ORDERED: Naloxone 0.4 MG/ML INJ IVP PRN (01:17)
[2019-05-20 02:58] LABS: Basophils % 0.2 %; Eosinophils % 0.3 %; Hematocrit 20.3 % (37.5-50.1); Hemoglobin 6.4 g/dL (12.9-16.9); Immature Granulocytes % 4.7 % (0-4); Lymphocytes # 0.3 K/mcL (0.6-4.6); Lymphocytes % 2.6 %; Mean Corpuscular HGB Conc 31.5 g/dL (31.6-35.5); Mean Corpuscular Volume 91.9 fL (83.0-100.0); Mean Platelet Volume 11.3 fL (9.4-12.4); Monocytes # 0.6 K/mcL (0.0-1.3); Monocytes % 4.4 %; Neutrophils # 10.9 K/mcL (1.6-8.9); Platelet Count 211 K/mcL (140-400); Red Blood Count 2.21 M/mcL (4.19-5.50); Red Cell Distribution Width 15.8 % (11.5-14.5); Segmented Neutrophils % 87.8 %; White Blood Count 12.4 K/mcL (4.3-11.1)
[2019-05-20 03:06] LABS: INR 1.8; Prothrombin Time 20.4 Seconds (9.4-12.1)
[2019-05-20 03:18] LABS: Albumin 3.3 g/dL (3.5-5.7); Albumin/Globulin Ratio 1.1 (1.1-2.2); Bilirubin,Total 0.6 mg/dL (0.3-1.0); Calcium 8.1 mg/dL (8.6-10.3); Globulin 3.1 g/dL (2.4-3.5); Phosphorous 6.7 mg/dL (2.7-4.5); Potassium 4.7 mEq/L (3.5-5.1); Total Protein 6.4 g/dL (6.4-8.9)
[2019-05-20] MEDS ORDERED: Vancomycin 1 EACH in 0.9 % Sodium Chloride 250 ML IVPB SCH (05:00)
[2019-05-20] MEDS ORDERED: CEFEPIME HCL IVP SCH (06:00)
[2019-05-20] MEDS ORDERED: WATER FOR INJ IVP SCH (06:00)
[2019-05-20] MEDS ORDERED: Acetaminophen 325 MG TABLET PO PRN (07:00)
[2019-05-20] MEDS ORDERED: carvediloL 25 MG TABLET PO SCH (08:00)
[2019-05-20] MEDS ORDERED: predniSONE 5 MG TABLET PO SCH (09:00)
[2019-05-20] MEDS ORDERED: amLODIPine 5 MG TABLET PO SCH (09:00)
[2019-05-20] MEDS ORDERED: (Tacrolimus [Prograf] 1 MG) PO SCH (09:00)
[2019-05-20] MEDS ORDERED: Magnesium Oxide 400 MG TABLET PO SCH (09:00)
[2019-05-20] MEDS ORDERED: DilTIAZem CD (24hr) 120 MG CAP.ER.24H PO SCH (09:00)
[2019-05-20] MEDS ORDERED: Mycophenolate Sodium (DR) 180 MG TABLET.DR PO SCH (09:00)
[2019-05-20] MEDS ORDERED: Loratadine 10 MG TABLET PO SCH (09:00)
[2019-05-20] MEDS ORDERED: 0.9 % Sodium Chloride 250 ML IVC PRN (09:59)
[2019-05-20] MEDS ORDERED: 0.9 % Sodium Chloride 1,000 ML PRIME SCH (10:00)
[2019-05-20 11:08] LABS: Hepatitis B Surface Antibody < 3.10 mIU/mL
[2019-05-20 11:19] LABS: Hepatitis B Surface Antigen Nonreactive (Nonreactive)
[2019-05-20] MEDS ORDERED: 0.9 % Sodium Chloride 1,000 ML ONE (14:30)
[2019-05-20 16:43] VITALS: BP 126/62
[2019-05-20] MEDS ORDERED: Aspirin Enteric Coated 81 MG Tablet PO SCH (18:00)
[2019-05-20] MEDS ORDERED: Cefepime HCl 1,000 MG in Water for inj. (sterile) 10 ML IVP SCH (18:00)
[2019-05-20] MEDS ORDERED: (Tacrolimus [Prograf] 0.5 MG) PO SCH (18:00)
[2019-05-20] MEDS ORDERED: Aminoglycoside Consult 1 EACH MC ONE (18:01)
== END 2019-05-20 18:02 | disposition other institution (70) ==
LOC: 2ANU 20:07 → EMEROOARM 20:07 → SUATTDRO 05-20 00:41 → 2ANU 05-20 01:54
PROVIDERS: ADMIT Family Medicine; ATTEND Internal Medicine